=== PATIENT | male | born 1960 | race Caucasian/White ===

== ENCOUNTER → 2017-12-04 16:17 | Outpatient (REF) | payer OTHER, SELFPAY ==
[2017-12-13 19:21] LABS: Ca oxalate dihydrate 40 % (.)
[2017-12-14 10:02] LABS: Specimen Type Comment: (.)
== END ==
LOC: LAB 16:17
PROVIDERS: Visit Provider Urology
DX: N20.0 Calculus of kidney (principal)
CPT/HCPCS: 82370

== ENCOUNTER 2019-11-26 21:06 | Emergency (ER) | payer BC, SELFPAY ==
[2019-11-26 21:07] VITALS: BP 153/91; PULSE 102; RESP 16; TEMP 36.7; O2SAT 98; BMI 33.6
--- NOTE | 2019-11-26 21:19 | CT_ITS ---
PROCEDURE: CT CERVICAL SPINE WO CON CLINICAL INDICATION: numbness on right side of back Right upper and right lower extremity tingling and numbness COMPARISON: No exams were available for comparison TECHNIQUE: Axial images obtained with sagittal and coronal reformats. All CT scans at the facility use one or more dose reduction, viz: automated exposure control, ma/kV adjustment per patient size (including targeted exams where dose is matched to indication, i.e. head), or iterative reconstruction technique. Axial spiral CT scanning performed of the cervical spine beginning at the base of the skull and continuing to the upper T-spine. 3-D multiplanar reconstruction with 3-D manipulation of volumetric data set in image rendering was completed by the radiologist and/or technologist with the supervision of the radiologist on independent workstation. FINDINGS: There is normal alignment. Patient's head is tilted toward the right. No acute fracture or dislocation evident. C2-C3: Unremarkable. C3-C4: Unremarkable. C4-C5: Right-sided facet hypertrophy with right-sided foraminal narrowing with mild degenerative disc disease C5-C6: Mild right-sided facet hypertrophy with mild right-sided foraminal narrowing with mild degenerative disc disease C6-C7: There is a small posterior right paracentral osteophyte with degenerative disc disease. Lung apices are clear. There are mildly prominent cervical lymph nodes present bilaterally. IMPRESSION: 1. Multilevel cervical spondylosis with right-sided foraminal narrowing at C4-C5 and C5-C6 and a small posterior right paracentral osteophyte at C6-C7. MRI may provide further evaluation to determine the degree of neural impingement. 2. Mild cervical adenopathy Dictated by: Filipe May MD 11/27/2019 06:16 Filipe May MD in [facility] 11/27/2019 06:16
--- NOTE | 2019-11-26 21:19 | CT_ITS ---
PROCEDURE: CT THORACIC SPINE WO CON CLINICAL HISTORY: numbness on right side of back COMPARISON: No exams were available for comparison TECHNIQUE: Axial images obtained with sagittal and coronal reformats. All CT scans at the facility use one or more dose reduction, viz: automated exposure control, ma/kV adjustment per patient size (including targeted exams where dose is matched to indication, i.e. head), or iterative reconstruction technique. FINDINGS: There is multilevel anterior bridging osteophytes throughout the thoracic spine with mild multilevel degenerative disc disease. No fracture or dislocation. No canal stenosis. No lytic or blastic change. Normal alignment. No paraspinal soft tissue mass IMPRESSION: Degenerative changes with osteophytosis. No acute finding Dictated by: Filipe May MD 11/27/2019 09:18 Filipe May MD in [facility] 11/27/2019 09:18
--- NOTE | 2019-11-26 21:19 | CT_ITS ---
PROCEDURE: CT LUMBAR SPINE WO CON CLINICAL HISTORY: numbness on right side of back Right lower extremity numbness and tingling after bending over, recent fall with injury and pain COMPARISON: CT ABDPELW/O CT ABD PELVIS W/O CONTRAST from 01/31/2017 TECHNIQUE: Axial images obtained with sagittal and coronal reformats. All CT scans at the facility use one or more dose reduction, viz: automated exposure control, ma/kV adjustment per patient size (including targeted exams where dose is matched to indication, i.e. head), or iterative reconstruction technique. FINDINGS: There is multilevel lumbar spondylosis. T12-L1: Degenerate disc disease with anterior osteophytes. L1-L2: Degenerate disc disease with mild bulging disc eccentric toward the left lateral region L2-L3: Mild degenerative disc disease with mild bulging disc. L3-L4: Mild concentric bulging disc with facet and ligamentum hypertrophy with borderline narrowing of the canal with bilateral foraminal narrowing. L4-5: Bulging disc with facet and ligamentum hypertrophy with canal stenosis bilateral lateral recess narrowing and bilateral foraminal narrowing with facet hypertrophic change. L5-S1: Bulging disc with facet and ligamentum hypertrophy with bilateral lateral recess narrowing and mild bilateral foraminal narrowing. Facet hypertrophic changes on the right abuts the right S1 nerve root. No acute fracture or dislocation. No lytic or blastic change. Low-density changes are present in the right kidney inferiorly may be due to a renal cyst which could be confirmed with ultrasound measuring approximately 12 mm. Exophytic renal cyst noted on the left at 14 mm. Incidental vascular calcifications are present. IMPRESSION: Multilevel lumbar spondylosis as described above with foraminal lateral recess narrowing and canal stenosis. Please see above for detailed description at each level. Dictated by: Filipe May MD 11/27/2019 09:14 Filipe May MD in [facility] 11/27/2019 09:14
[2019-11-26 21:29] VITALS: BP 137/84; PULSE 90; RESP 18; O2SAT 94
--- NOTE | 2019-11-26 21:35 | PC.NURSE ---
pt to xray at this time per rad staff via wheelchair
[2019-11-26 22:02] VITALS: BP 136/81; PULSE 89; RESP 18; O2SAT 92
--- NOTE | 2019-11-26 22:27 | HMH.EDBACK ---
ED Disposition Clinical Impression: Lumbar radiculopathy, Cervical radicular pain, Lumbar facet joint pain, Lumbar stenosis without neurogenic claudication, Foraminal stenosis of lumbar region Disposition: Home, Self-Care Condition on Discharge: Good Instructions: DI for Back Pain With Sciatica Additional Instructions: call pcp and dr blue in am for follow up Referrals: Pop Dunham [Primary Care Provider] - Oscar Blue MD [Staff Physician] - - Critical Care Critical Care Time: No Attestation: On 11/26/19, the high probability of a clinically significant, sudden or life threatening deterioration of the following system(s) required my full and direct attention, intervention and personal management. The time I documented below is in addition to time spent performing reported procedures but includes the following listed in this critical care notation. Medical Decision Making - Medical Records Medical records reviewed: Yes: I reviewed the patient's medical records. - Khoa Inquiry Pt receiving controlled substance: No Vital Signs: 11/26/19 21:07 11/26/19 21:29 11/26/19 22:02 Temperature 98.1 F Temperature Source Oral Pulse Rate [Right] 102 H 90 89 Respiratory Rate 16 18 18 Blood Pressure [Right Arm] 153/91 H 137/84 136/81 Blood Pressure Mean [Right Arm] 111 101 99 Blood Pressure Source [Right Arm] Automatic Cuff Blood Pressure Position [Right Arm] Sitting 02 Sat by Pulse Oximetry 98 94 L 92 L Oxygen Delivery Method Room Air Room Air Room Air - Lab Data Lab results reviewed: Yes: I reviewed the patient's lab results. Orders (Tests/Meds): ORDERS Category Date Time Status CT cervical spine wo con Stat Cat Scan 11/26/19 21:[address] lumbar spine wo con Stat Cat Scan 11/26/19 21:[address] thoracic spine wo con Stat Cat Scan 11/26/19 21:19 Taken - CT Data CT Scan: C-Spine, T-Spine, L-Spine Time Received: 22:[address] Reviewed: Yes: I have viewed the radiologist's interpretation Preliminary Findings: Abnormal (see report ), No Fracture Seen Back Pain HPI - General Chief Complaint: Back Pain/Injury Stated Complaint: Numbness Time Seen by Provider: 11/26/19 22:00 Mode of Arrival: Ambulatory Source of Information: Patient, Spouse, Medical Record Limitations: No Limitations Description of Symptoms (Recalled from ER Triage Doc. by RN): Pt states he had tingling in RUE, RLE, and back staring approximately 30 minutes ago. Pt mentions hx of sciatica and this started after bending over. - History of Present Illness HPI Narrative: after bending had episode of tingling rt upper and rt lower ext with pain but no visual sx and no speech or motor loss - no trauma or fever and no rash MD Complaint: back pain Onset (ago): hour(s) Duration: intermittent Similar Symptoms Previously: No Location: lumbar spine Severity: moderate Quality: tingling Radiation: right leg Context: bending Associated symptoms: denies other symptoms - Related Data Home Medications Medication Instructions Recorded Confirmed lovastatin 10 mg tablet 10 mg PO HS 07/17/17 11/26/19 metformin 500 mg tablet 500 mg PO BID 07/17/17 11/26/19 Linagliptin [Tradjenta 5mg tablet] 5 mg PO DAILY 11/26/19 11/26/19 Allergies Allergy/AdvReac Type Severity Reaction Status Date / Time prednisone [PREDNISONE] Allergy Unknown Unverified 07/17/17 09:47 [facility] History - Hepatitis A Screen Drug use history?: No High risk sexual behaviors?: No History of sexually transmitted infection?: No Currently employed?: No Childcare worker?: No Do you have indoor plumbing?: Yes Do you have electricity?: Yes Attestation statement:: This patient has been screened for Hepatitis A risk factors. I have reviewed the patient's past medical history: Yes Medical History: Reports:: Asthma, Depression, Diabetes Mellitus Type 2, Hyperlipidemia, Hypertension, Kidney Stones Denies:: Cancer, Diabetes Mellitus Type 1, Internal Pacemak
[2019-11-26 22:39] VITALS: BP 126/79; PULSE 81; RESP 18; O2SAT 94
[2019-11-26 22:44] VITALS: BP 126/79; PULSE 87; RESP 16; TEMP 36.9; O2SAT 98
== END 2019-11-26 22:46 | disposition home or self-care (01) ==
PROVIDERS: Emergency Provider Emergency Medicine; PCP Internal Medicine
DX: M54.16 Radiculopathy, lumbar region (principal); M54.12 Radiculopathy, cervical region; M48.061 Spinal stenosis, lumbar region without neurogenic claudication; E78.5 Hyperlipidemia, unspecified; I10 Essential (primary) hypertension; F17.210 Nicotine dependence, cigarettes, uncomplicated; Z79.899 Other long term (current) drug therapy
CPT/HCPCS: 72125; 72128; 72131; 99283

== ENCOUNTER → 2021-04-15 12:33 | Outpatient (CLI) | payer BC, SELFPAY ==
[2021-04-15 14:43] LABS: Hemoglobin A1C 6.8 % (4.0-6.0)
[2021-04-15 16:50] LABS: Chloride 103 mmol/L (98-107); Potassium 4.9 mmoL/L (3.5-5.1); Sodium 137 mmol/L (136-145)
[2021-04-15 16:52] LABS: Alanine Aminotransferase 31 U/L (12-78); Aspartate Amino Transferase 41 U/L (17-59); Blood Urea Nitrogen 12 mg/dl (9-20); Estimated Glomerular Filt Rate 114 ml/min (>60); GFR (African American) 138 ML/MIN (>60)
[2021-04-15 16:53] LABS: Albumin Level 4.3 g/dl (3.5-5.0); Albumin/Globulin Ratio 1.6 (1.1-1.8); Alkaline Phosphatase 84 U/L (38-126); Anion Gap 10.9 mEq/L (5-15); Bilirubin,Total 0.4 mg/dl (0.2-1.3); Calcium 8.1 mg/dl (8.4-10.2); Carbon Dioxide 28 mmol/L (22.0-30.0); Chol/HDL Ratio 5.7 (1-3.5); Cholesterol 193 mg/dl (140-200); Creatine Kinase 91 U/L (55-170); Globulin 2.7 g/dL (1.3-3.2); Glucose 108 mg/dl (74-100); HDL Cholesterol 34 mg/dl (40-60); Triglycerides 185 mg/dl (30-150); VLDL Cholesterol 37 mg/dL (0-40)
[2021-04-15 17:04] LABS: Direct LDL Cholesterol 135.48 mg/dL (100-129)
== END ==
PROVIDERS: Visit Provider Internal Medicine
DX: E11.42 Type 2 diabetes mellitus with diabetic polyneuropathy (principal); I10 Essential (primary) hypertension; E78.5 Hyperlipidemia, unspecified; Z79.84 Long term (current) use of oral hypoglycemic drugs
CPT/HCPCS: 80053; 80061; 82550; 83036

== ENCOUNTER → 2021-10-14 12:34 | Outpatient (CLI) | payer BC, SELFPAY ==
[2021-10-14 14:04] LABS: Basophils # 0.1 K/mm3 (0-0.2); Basophils % 0.8 % (0.1-2.0); Eosinophils # 0.1 K/mm3 (0.0-0.4); Eosinophils % 1.3 % (0.1-12.0); Hematocrit 49.7 % (42.0-52.0); Hemoglobin 15.6 g/dL (14.1-18.0); Lymphocytes # 2.6 K/mm3 (0.7-4.5); Lymphocytes % 32.2 % (10-50); Mean Corpuscular HGB Conc 31.4 g/dL (31.8-35.4); Mean Corpuscular Hemoglobin 28.4 pg (27.0-31.2); Mean Corpuscular Volume 90.6 fl (80-94); Mean Platelet Volume 11.7 fl (7.4-10.4); Monocytes # 0.4 K/mm3 (0.1-1.0); Monocytes % 4.4 % (1.7-9.3); Neutrophils % 61.3 % (37.0-80.0); Platelet Count 247 K/mm3 (142-424); Red Blood Count 5.48 M/mm3 (4.60-6.20); Red Cell Distribution Width 14.1 % (11.5-17.5); White Blood Count 8.2 K/mm3 (4.8-10.8)
[2021-10-14 14:13] LABS: Creatinine,Urine Random 107 mg/dL (Not Estab.)
[2021-10-14 14:18] LABS: Microalbumin/Creatinine Ratio 10.6
[2021-10-14 14:22] LABS: Hemoglobin A1C 7.1 % (4.0-6.0)
[2021-10-14 14:54] LABS: Alanine Aminotransferase 48 U/L (12-78); Albumin Level 4.2 g/dl (3.5-5.0); Albumin/Globulin Ratio 1.4 (1.1-1.8); Alkaline Phosphatase 84 U/L (38-126); Anion Gap 12.9 mEq/L (5-15); Aspartate Amino Transferase 52 U/L (17-59); Bilirubin,Total 0.1 mg/dl (0.2-1.3); Blood Urea Nitrogen 17 mg/dl (9-20); Calcium 8.9 mg/dl (8.4-10.2); Carbon Dioxide 23 mmol/L (22.0-30.0); Chloride 108 mmol/L (98-107); Chol/HDL Ratio 6.8 (1-3.5); Cholesterol 210 mg/dl (140-200); Estimated Glomerular Filt Rate 136 ml/min (>60); GFR (African American) 165 ML/MIN (>60); Globulin 3.1 g/dL (1.3-3.2); Glucose 120 mg/dl (74-100); HDL Cholesterol 31 mg/dl (40-60); Potassium 4.9 mmoL/L (3.5-5.1); Sodium 139 mmol/L (136-145); Total Protein,Serum 7.3 g/dl (6.3-8.2); Triglycerides 221 mg/dl (30-150); VLDL Cholesterol 44 mg/dL (0-40)
[2021-10-14 15:24] LABS: Prostate Specific Ag Screen 1.8 ng/ml (0.0-4.0)
[2021-10-16 10:10] LABS: Direct LDL Cholesterol 127 mg/dL (100-129)
== END ==
PROVIDERS: PCP Internal Medicine; Visit Provider Internal Medicine
DX: E11.42 Type 2 diabetes mellitus with diabetic polyneuropathy (principal); I10 Essential (primary) hypertension; E78.5 Hyperlipidemia, unspecified; N40.1 Benign prostatic hyperplasia with lower urinary tract symptoms; Z12.5 Encounter for screening for malignant neoplasm of prostate
CPT/HCPCS: 80053; 80061; 82043; 82570; 83036; 85025; G0103

== ENCOUNTER → 2021-12-07 10:29 | Outpatient (CLI) | payer BC, SELFPAY ==
--- NOTE | 2021-12-07 10:39 | CT_ITS ---
FINAL REPORT CLINICAL HISTORY: ? TIA X1 WEEK, L BODY NUMBNESS FINDINGS: Axial images of the head were obtained without contrast. Coronal reformatted images were also obtained.This study was performed with techniques to keep radiation doses as low as reasonably achievable (ALARA). Individualized dose reduction techniques using automated exposure control or adjustment of mA and/or kV according to the patient's size were employed. There is no evidence of intracranial hemorrhage or mass. The ventricular size is within normal limits. There is no evidence of shift of the midline structures. No abnormal extra axial fluid collection is identified. No skull abnormality is seen on the bone window images. IMPRESSION: No acute intracranial abnormality. Reviewed, Interpreted and Dictated by Ramon Murray III, MD Transcribed by Hortencia Rodriguez Authenticated and [facility]
--- NOTE | 2021-12-07 12:02 | ECG_ITS ---
APPROVED REPORT Exam: Resting ECG HR:70 bpm ECG Measurements Heart Rate 70 AXES HI 168 P -2 QRSd 109 QRS 0 QT 399 T 53 QTc 420 Conclusion SINUS RHYTHM WITH SINUS ARRHYTHMIA NORMAL ECG Electronically signed by : Pop Dunham MD 12/07/2021 15:52:12
== END ==
PROVIDERS: PCP Internal Medicine; Visit Provider Internal Medicine
DX: G45.8 Other transient cerebral ischemic attacks and related syndromes (principal); R20.0 Anesthesia of skin
CPT/HCPCS: 70450; 93005; 93225; 93226

== ENCOUNTER → 2021-12-14 12:44 | Outpatient (CLI) | payer BC, SELFPAY ==
--- NOTE | 2021-12-14 12:50 | CA_ITS ---
APPROVED REPORT EXAM: Comprehensive 2D, Doppler, and color-flow Echocardiogram Town Manager: Jessi Hernandez RT(R) Ht: 5 ft 10 in Wt: 226lbs BSA: 2.20 BP: 145/84 mmHg Indications: TIA, HTN, hyperlipidemia, smoker, DM, family history of HD 2D Dimensions LVOT 2.12 cm (M/F) 1.5-2.5 LVEF (Levy's) 43.80 % M: 52 - 72 LV Volume 128.40 mL M: 62 - 150 LV Volume Index 58.36 mL/m2 M: 34 - 74 LA Volume 40.60 mL LA Volume Index 18.45 mL/m2 (M/F) 16-34 M-Mode Dimensions RVDd 3.93 cm (0.9-2.6) LA Diam 3.63 cm (1.9-4.0) LVDd 4.91 cm (3.5-5.7) Ao Diam 3.20 cm (2.0-3.7) LVDs 3.83 cm (3.5-5.7) IVSd 1.03 cm (0.6-1.1) PWd 1.21 cm (0.6-1.1) EF (Teich) 44.40% FS 22.00% EDV (Teich) 113.40 mL ESV (Teich) 63.10 mL LV Diastology E Decel Time 183.00 (160-240 msec) E/A Ratio 0.8 MED E' 5.70 (< 7 cm/sec) E'/MED E' Ratio 10.53 (>14) LAT E' 9.10 (<10 cm/sec) E/LAT E' Ratio 6.59 (>14) Mitral Valve MV E Max Alvino. 60.00 (40-130 cm/s) MV A Velocity 76.00 (40-130 cm/s) E/A Ratio 0.79 MV Decel. Time 183.00 (160-240 ms) MV PHT 54.00 ms Left Ventricle Left atrium is mildly enlarged, left ventricle is normal size mild concentric left ventricular hypertrophy, estimated ejection fraction 55% with no regional wall motion abnormality, grade 1 diastolic dysfunction seen without tissue Doppler evidence of raise left atrial pressure. Right Ventricle Right atrium and right ventricle are mildly enlarged with normal contractility. Aortic Valve Aortic valve is thickened and calcified without aortic stenosis or aortic insufficiency. Mitral Valve Mitral valve is grossly normal, there is trace mitral regurgitation. Tricuspid Valve Tricuspid valve is grossly normal, there is trace tricuspid regurgitation. Pulmonic Valve Pulmonic valve is poorly visualized. Great Vessels Aortic root is normal size. Inferior vena cava is poorly visualized. Pericardium No significant pericardial effusion noted. Conclusion 1. Mild biatrial enlargement, normal left ventricular size, mild concentric left ventricular hypertrophy, estimated ejection fraction 55% with no regional wall motion abnormality, grade 1 diastolic dysfunction seen without tissue Doppler evidence of raise left atrial pressure. 2. Mildly enlarged right ventricle with normal contractility. 3. Thickened and calcified aortic valve without aortic stenosis or aortic insufficiency. 4. Trace mitral and tricuspid regurgitation. 5. No significant pericardial effusion. 6. Inferior vena cava is poorly visualized. Electronically signed by : Devon Shah MD 12/15/2021 06:03:14
--- NOTE | 2021-12-14 12:51 | CA_ITS ---
FINAL REPORT TECHNIQUE: Color Doppler, duplex Doppler and yoder scale sonography of the bilateral neck arterial vasculature was performed. Velocities were measured in the carotid arteries. Stenosis evaluation based on the validated velocity criteria. CLINICAL HISTORY: .TIA, Left sided numbness FINDINGS: The peak systolic velocity of the right common carotid artery is 67 cm/s. The peak systolic velocity of the right internal carotid artery is 90 cm/s and end diastolic velocity 30 cm/s. The ICA/CCA ratio is 1.3. A mild amount of plaque is present. The right external carotid artery is patent. The right vertebral artery is patent with antegrade flow. The peak systolic velocity of the left common carotid artery is 95 cm/s. The peak systolic velocity of the left internal carotid artery is 109 cm/s and end diastolic velocity 37 cm/s. The ICA/CCA ratio is 1.15. A mild amount of plaque is present. The left external carotid artery is patent.The left vertebral artery is patent with antegrade flow. IMPRESSION: Less than 50% bilateral carotid stenosis. Bilateral patent vertebral arteries with antegrade flow. If indicated, CTA or MRA could further evaluate. Reviewed, Interpreted and Dictated by Ramon Murray III, MD Transcribed by Carmen Hankins Authenticated and [facility]
== END ==
PROVIDERS: PCP Internal Medicine; Visit Provider Internal Medicine
DX: G45.8 Other transient cerebral ischemic attacks and related syndromes (principal); R20.0 Anesthesia of skin
CPT/HCPCS: 93306; 93880

== ENCOUNTER → 2022-05-05 12:43 | Outpatient (CLI) | payer BC, SELFPAY ==
[2022-05-05 13:33] LABS: Hemoglobin A1C 7.5 % (4.0-6.0)
[2022-05-05 14:50] LABS: Alanine Aminotransferase 46 U/L (12-78); Albumin Level 4.3 g/dl (3.5-5.0); Albumin/Globulin Ratio 1.6 (1.1-1.8); Alkaline Phosphatase 79 U/L (38-126); Anion Gap 13.5 mEq/L (5-15); Aspartate Amino Transferase 49 U/L (17-59); Bilirubin,Total 0.5 mg/dl (0.2-1.3); Blood Urea Nitrogen 15 mg/dl (9-20); Calcium 8.6 mg/dl (8.4-10.2); Carbon Dioxide 26 mmol/L (22.0-30.0); Chloride 103 mmol/L (98-107); Chol/HDL Ratio 4.2 (1-3.5); Cholesterol 137 mg/dl (140-200); Estimated Glomerular Filt Rate 114 ml/min (>60); GFR (African American) 138 ML/MIN (>60); Globulin 2.7 g/dL (1.3-3.2); Glucose 111 mg/dl (74-100); HDL Cholesterol 33 mg/dl (40-60); Potassium 4.5 mmoL/L (3.5-5.1); Sodium 138 mmol/L (136-145); Triglycerides 192 mg/dl (30-150); VLDL Cholesterol 38 mg/dL (0-40)
[2022-05-05 15:00] LABS: Direct LDL Cholesterol 76.03 mg/dL (100-129)
== END ==
PROVIDERS: PCP Internal Medicine; Visit Provider Internal Medicine
DX: E11.42 Type 2 diabetes mellitus with diabetic polyneuropathy (principal); E11.59 Type 2 diabetes mellitus with other circulatory complications; I10 Essential (primary) hypertension; E78.5 Hyperlipidemia, unspecified; G45.9 Transient cerebral ischemic attack, unspecified; F17.209 Nicotine dependence, unspecified, with unspecified nicotine-induced disorders; Z79.84 Long term (current) use of oral hypoglycemic drugs
CPT/HCPCS: 80053; 80061; 83036

== ENCOUNTER → 2022-07-20 12:58 | Outpatient (CLI) | payer BC, SELFPAY ==
--- NOTE | 2022-07-20 13:02 | XR_ITS ---
FINAL REPORT CLINICAL HISTORY: trigger finger FINDINGS: Right hand Three views were obtained. There is no acute fracture or dislocation. 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 There is also a chronic fracture of the distal radius. Mild degenerative changes are present. No soft tissue abnormality is identified. IMPRESSION: Degenerative and chronic appearing findings. Reviewed, Interpreted and Dictated by Ramon Murray III, MD Transcribed by Hortencia Rodriguez Authenticated and [facility]
--- NOTE | 2022-07-20 13:02 | XR_ITS ---
FINAL REPORT CLINICAL HISTORY: trigger finger FINDINGS: Left hand Three views were obtained. There is no acute fracture or dislocation. There are mild degenerative changes. No soft tissue abnormality is identified. IMPRESSION: Mild degenerative changes. Reviewed, Interpreted and Dictated by Ramon Murray III, MD Transcribed by Hortencia Rodriguez Authenticated and [facility]
== END ==
PROVIDERS: PCP Internal Medicine; Visit Provider Orthopaedic Surgery
DX: M65.30 Trigger finger, unspecified finger (principal)
CPT/HCPCS: 73130

== ENCOUNTER → 2022-11-07 14:10 | Outpatient (CLI) | payer BC, SELFPAY ==
[2022-11-07 15:40] LABS: Basophils % 0.2 % (0.1-2.0); Eosinophils # 0.3 K/mm3 (0.0-0.4); Eosinophils % 2.6 % (0.1-12.0); Hematocrit 49.6 % (42.0-52.0); Hemoglobin 15.9 g/dL (14.1-18.0); Lymphocytes # 2.6 K/mm3 (0.7-4.5); Lymphocytes % 25.5 % (10-50); Mean Corpuscular HGB Conc 32.1 g/dL (31.8-35.4); Mean Corpuscular Hemoglobin 28.8 pg (27.0-31.2); Mean Corpuscular Volume 89.8 fl (80-94); Mean Platelet Volume 11.1 fl (7.4-10.4); Monocytes # 0.4 K/mm3 (0.1-1.0); Monocytes % 4.2 % (1.7-9.3); Neutrophils % 67.6 % (37.0-80.0); Platelet Count 234 K/mm3 (142-424); Red Blood Count 5.53 M/mm3 (4.60-6.20); Red Cell Distribution Width 13.7 % (11.5-17.5); White Blood Count 10.4 K/mm3 (4.8-10.8)
[2022-11-07 16:39] LABS: Alanine Aminotransferase 42 U/L (12-78); Albumin Level 4.4 g/dl (3.5-5.0); Albumin/Globulin Ratio 1.4 (1.1-1.8); Alkaline Phosphatase 95 U/L (38-126); Anion Gap 15.7 mEq/L (5-15); Aspartate Amino Transferase 44 U/L (17-59); Bilirubin,Total 0.3 mg/dl (0.2-1.3); Blood Urea Nitrogen 19 mg/dl (9-20); Carbon Dioxide 24 mmol/L (22.0-30.0); Chloride 105 mmol/L (98-107); Chol/HDL Ratio 4.8 (1-3.5); Cholesterol 154 mg/dl (140-200); Estimated Glomerular Filt Rate 114 ml/min (>60); GFR (African American) 137 ML/MIN (>60); Globulin 3.2 g/dL (1.3-3.2); Glucose 118 mg/dl (74-100); HDL Cholesterol 32 mg/dl (40-60); Potassium 4.7 mmoL/L (3.5-5.1); Sodium 140 mmol/L (136-145); Total Protein,Serum 7.6 g/dl (6.3-8.2); Triglycerides 211 mg/dl (30-150); VLDL Cholesterol 42 mg/dL (0-40)
[2022-11-07 16:50] LABS: Direct LDL Cholesterol 78.86 mg/dL (100-129)
[2022-11-07 16:55] LABS: Hemoglobin A1C 7.6 % (4.0-6.0)
[2022-11-07 17:10] LABS: Prostate Specific Ag Screen 1.6 ng/ml (0.0-4.0)
== END ==
LOC: LAB.DROPOF 14:10
PROVIDERS: PCP Internal Medicine; Visit Provider Internal Medicine
DX: E11.42 Type 2 diabetes mellitus with diabetic polyneuropathy (principal); E11.59 Type 2 diabetes mellitus with other circulatory complications; I10 Essential (primary) hypertension; E78.5 Hyperlipidemia, unspecified; G45.8 Other transient cerebral ischemic attacks and related syndromes; R39.12 Poor urinary stream; Z12.5 Encounter for screening for malignant neoplasm of prostate
CPT/HCPCS: 80053; 80061; 83036; 85025; G0103

== ENCOUNTER 2023-06-08 12:52 | Outpatient (CLI) | payer MEDICARE, OTHER, SELFPAY ==
[2023-06-08 13:52] LABS: Hemoglobin A1C 7.9 % (4.0-6.0)
[2023-06-08 14:02] LABS: Alanine Aminotransferase 58 U/L (12-78); Albumin Level 4.6 g/dl (3.5-5.0); Albumin/Globulin Ratio 1.6 (1.1-1.8); Alkaline Phosphatase 73 U/L (38-126); Aspartate Amino Transferase 55 U/L (17-59); Bilirubin,Total 0.5 mg/dl (0.2-1.3); Blood Urea Nitrogen 18 mg/dl (9-20); Calcium 9.5 mg/dl (8.4-10.2); Carbon Dioxide 27 mmol/L (22.0-30.0); Chloride 104 mmol/L (98-107); Chol/HDL Ratio 4.1 (1-3.5); Cholesterol 124 mg/dl (140-200); Estimated Glomerular Filt Rate 136 ml/min (>60); GFR (African American) 164 ML/MIN (>60); Globulin 2.9 g/dL (1.3-3.2); Glucose 117 mg/dl (74-100); HDL Cholesterol 30 mg/dl (40-60); Sodium 140 mmol/L (136-145); Total Protein,Serum 7.5 g/dl (6.3-8.2); Triglycerides 191 mg/dl (30-150); VLDL Cholesterol 38 mg/dL (0-40)
[2023-06-08 14:24] LABS: Direct LDL Cholesterol 67.83 mg/dL (100-129)
== END 2023-06-08 23:59 | disposition home or self-care (01) ==
LOC: LAB.DROPOF 12:53
PROVIDERS: PCP Internal Medicine; Visit Provider Internal Medicine
DX: E11.42 Type 2 diabetes mellitus with diabetic polyneuropathy (principal); I10 Essential (primary) hypertension; E78.5 Hyperlipidemia, unspecified; Z86.73 Personal history of transient ischemic attack (TIA), and cerebral infarction without residual deficits; F17.209 Nicotine dependence, unspecified, with unspecified nicotine-induced disorders; J45.909 Unspecified asthma, uncomplicated
CPT/HCPCS: 80053; 80061; 83036

== ENCOUNTER 2023-10-30 15:30 | Outpatient (CLI) | payer MEDICARE, OTHER, SELFPAY ==
--- NOTE | 2023-10-30 15:37 | XR_ITS ---
FINAL REPORT CLINICAL HISTORY: Right back pain with sciatica FINDINGS: LUMBAR SPINE 3 views were obtained. There is no acute fracture. Vertebrae are normal height. There is no malalignment. There is anterior osteophyte formation at L1-2 and L3-4. There is no soft tissue abnormality. IMPRESSION: No acute bony abnormality. Reviewed, Interpreted and Dictated by Owen Anna MD Transcribed by Marcela Escobedo Authenticated and [facility]
== END 2023-10-30 23:59 | disposition home or self-care (01) ==
LOC: RAD 15:33
PROVIDERS: PCP Internal Medicine; Visit Provider Internal Medicine
DX: M54.41 Lumbago with sciatica, right side (principal)
CPT/HCPCS: 72100

== ENCOUNTER 2023-12-10 14:23 | Outpatient (CLI) | payer MEDICARE, OTHER, SELFPAY ==
[2023-12-10 13:29] LABS: Basophils % 0.5 % (0.1-2.0); Eosinophils # 0.4 K/mm3 (0.0-0.4); Hematocrit 46.7 % (42.0-52.0); Hemoglobin 15.3 g/dL (14.1-18.0); Lymphocytes # 2.3 K/mm3 (0.7-4.5); Lymphocytes % 26.8 % (10-50); Mean Corpuscular HGB Conc 32.7 g/dL (31.8-35.4); Mean Corpuscular Hemoglobin 28.8 pg (27.0-31.2); Mean Corpuscular Volume 88.1 fl (80-94); Mean Platelet Volume 10.6 fl (7.4-10.4); Monocytes # 0.4 K/mm3 (0.1-1.0); Monocytes % 4.4 % (1.7-9.3); Neutrophils # 5.6 K/mm3 (1.8-7.8); Neutrophils % 64.3 % (37.0-80.0); Platelet Count 193 K/mm3 (142-424); Red Blood Count 5.31 M/mm3 (4.60-6.20); White Blood Count 8.7 K/mm3 (4.8-10.8)
[2023-12-10 14:19] LABS: Creatinine,Urine Random 76 mg/dL (Not Estab.)
[2023-12-10 14:22] LABS: Microalbumin/Creatinine Ratio 35.3
[2023-12-10 15:27] LABS: Chol/HDL Ratio 3.9 (1-3.5); Cholesterol 134 mg/dl (140-200); HDL Cholesterol 34 mg/dl (40-60); Triglycerides 212 mg/dl (30-150); VLDL Cholesterol 42 mg/dL (0-40)
[2023-12-10 15:38] LABS: Direct LDL Cholesterol 63.36 mg/dL (100-129)
[2023-12-10 15:59] LABS: Prostate Specific Ag Screen 1.8 ng/ml (0.0-4.0)
[2023-12-10 16:12] LABS: Hemoglobin A1C 7.7 % (4.0-6.0)
[2023-12-11 10:58] LABS: Alanine Aminotransferase 52 U/L (12-78); Albumin Level 4.3 g/dl (3.5-5.0); Albumin/Globulin Ratio 1.6 (1.1-1.8); Alkaline Phosphatase 68 U/L (38-126); Anion Gap 10.5 mEq/L (5-15); Aspartate Amino Transferase 53 U/L (17-59); Bilirubin,Total 0.5 mg/dl (0.2-1.3); Blood Urea Nitrogen 17 mg/dl (9-20); Calcium 8.9 mg/dl (8.4-10.2); Carbon Dioxide 27 mmol/L (22.0-30.0); Chloride 105 mmol/L (98-107); Estimated Glomerular Filt Rate 135 ml/min (>60); GFR (African American) 164 ML/MIN (>60); Globulin 2.7 g/dL (1.3-3.2); Glucose 128 mg/dl (74-100); Potassium 4.5 mmoL/L (3.5-5.1); Sodium 138 mmol/L (136-145)
== END 2023-12-10 23:59 | disposition home or self-care (01) ==
LOC: LAB.DROPOF 14:24
PROVIDERS: PCP Internal Medicine; Visit Provider Internal Medicine
DX: E11.59 Type 2 diabetes mellitus with other circulatory complications (principal); E78.5 Hyperlipidemia, unspecified; Z12.5 Encounter for screening for malignant neoplasm of prostate; I10 Essential (primary) hypertension; E11.42 Type 2 diabetes mellitus with diabetic polyneuropathy
CPT/HCPCS: 80053; 80061; 82043; 82570; 83036; 85025; G0103

== ENCOUNTER 2024-03-08 17:35 | Emergency (ER) | payer MEDICARE, OTHER, SELFPAY ==
[2024-03-08 17:37] VITALS: BP 154/81; PULSE 83; RESP 18; TEMP 36.9; O2SAT 96; BMI 32.3
--- NOTE | 2024-03-08 17:46 | XR_ITS ---
PROCEDURE INFORMATION: Exam: XR Right Shoulder Exam date and time: 03/08/2024 5:44 PM Age: 63 years old Clinical indication: Pain; Shoulder; Right TECHNIQUE: Imaging protocol: Radiologic exam of the right shoulder. Views: 2 or more views. COMPARISON: CT CERVICAL SPINE WO CON 11/26/2019 9:36 PM FINDINGS: Bones/joints: Normal. Soft tissues: Normal. IMPRESSION: No acute findings.
--- NOTE | 2024-03-08 17:58 | ED_ITS ---
Discharge Plan Disposition Patient Disposition: Home, Self-Care Condition: Good Prescriptions Prescriptions: New methocarbamol 500 mg tablet 500 mg PO HS Qty: 7 0RF No Action Jardiance 25 mg tablet 25 mg PO DAILY Patient Comments: TAKE 1 TABLET BY MOUTH IN THE MORNING FOR BLOOD SUGAR metformin 500 mg tablet See Rx Instructions .ROUTE .COMPLEX Qty: 360 1RF Dose Instruction: TAKE 2 TABLETS BY MOUTH TWICE DAILY WITH MEALS Rx Instructions: TAKE 2 TABLETS BY MOUTH TWICE DAILY WITH MEALS fexofenadine-pseudoephedrine [Kay-D 24 Hour] 180-240 mg tablet extended release 24 hr 1 tab PO DAILY PRN (Reason: allergy symptoms) Qty: 60 0RF atorvastatin 20 mg tablet See Rx Instructions .ROUTE .COMPLEX Qty: 90 1RF Dose Instruction: Take 1 tablet by mouth in the evening Rx Instructions: Take 1 tablet by mouth in the evening clopidogrel 75 mg tablet See Rx Instructions .ROUTE .COMPLEX Qty: 90 1RF Dose Instruction: Take 1 tablet by mouth once daily Rx Instructions: Take 1 tablet by mouth once daily losartan 25 mg tablet 25 mg PO DAILY Qty: 90 1RF oseltamivir [Tamiflu] 75 mg capsule 75 mg PO BID 5 Days Qty: 10 0RF Referrals Follow up/Referrals: Pop Dunham MD [Primary Care Provider] - See instructions Activity Restrictions/Add. Instructions Additional Instructions/Restrictions: Tylenol as needed for pain Ice 20 minutes every hour for comfort Monitor for signs and symptoms of infection Muscle relaxers at bedtime Follow-up with PCP or Ortho as needed If symptoms worsen or do not improve return Clinical Impressions Clinical Impression: Muscle strain Instructions Patient Instructions: DI for Muscle Strain Print Language Print Language: Monegasque Discharge ED Provider: Hunter Sandoval General Adult HPI <Komal Chavarria ([facility]), [employer] - Last Filed: 03/08/24 18:27> General Chief complaint: Extremity Problem,Nontraumatic Stated complaint: right shoulder pain Time Seen by Provider: 03/08/24 17:44 Mode of Arrival: Ambulatory Source of Information: Patient Limitations: No Limitations Description of Symptoms (Recalled from ER Triage Doc. by RN): r shoulder pain x over a month History of Present Illness HPI narrative: 63-year-old male presents for right shoulder pain for over a month but worse this morning when he got up. Patient states he did have bursitis in his left shoulder and it seems like it is moved to his right shoulder. Related Data Home Medications ?Medication ?Instructions ?Recorded ?Confirmed empagliflozin 25 mg tablet 25 mg PO DAILY 09/10/23 12/10/23 (Jardiance) Previous Rx's ?Medication ?Instructions ?Recorded metformin 500 mg tablet See Rx Instructions .Route 08/31/23 .COMPLEX #360 tabs fexofenadine-pseudoephedrine ER 1 tab PO DAILY PRN allergy 11/06/23 180 mg-240 mg tablet,ext.release symptoms #60 tabs 24 hr (Kay-D 24 Hour) atorvastatin 20 mg tablet See Rx Instructions .Route 11/14/23 .COMPLEX #90 tabs clopidogrel 75 mg tablet See Rx Instructions .Route 12/03/23 .COMPLEX #90 tabs losartan 25 mg tablet 25 mg PO DAILY #90 tabs 01/29/24 oseltamivir 75 mg capsule (Tamiflu) 75 mg PO BID 5 days #10 caps 02/28/24 methocarbamol 500 mg tablet 500 mg PO HS #7 tabs 03/08/24 Allergies Allergy/AdvReac Type Severity Reaction Status Date / Time prednisone (PREDNISONE) Allergy Unknown Verified 12/10/23 09:40 <Hunter Sandoval MD - Last Filed: 03/08/24 23:33> History of Present Illness HPI narrative: 63-year-old male presents for right shoulder pain for over a month but worse this morning when he got up. Patient states he did have bursitis in his left shoulder and it seems like it is moved to his right shoulder. Patient has had no fevers, chills, skin changes to his right shoulder. He is still able to move it but has some pain with movement. He has no numbness, tingling, weakness [facility] <Komal Chavarria ([facility]), [employer] - Last Filed: 03/08/24 18:27> [facility] Disclaimer: The information contained in this section may have been updated after the patient was seen, as this information can be updated by other users. Social History Smoking Status: Current every day smoker tobacco type: cigarettes packs per day: 2 alcohol intake: never substance use type: denies use current occupational status: employed Travel in the last 8 weeks: None housing: house Have you lived/traveled outside US in past 30 days?: No Contact w/someone who lives/traveled outside US past 30 days?: No Exposure to someone with infectious disease in past 14 days?: No Do you have a fever (greater than 100.4 F or 38 C)?: No Have you tested positive for COVID-19: No Exposed to someone with COVID-19 in past 14 days?: No Do you have a sore throat?: No Do you have a cough?: No Do you have any weakness?: No Do you have any diarrhea?: No Are you experiencing any unusual bleeding?: No Do you have any muscle aches/pain?: No Do you have any abdominal pain?: No Are you experiencing loss of taste or smell?: No Other Medical History Have you received the Flu Vaccine for this season: Yes Have you received the Pneumonia Vaccine: No <[facility] [employer] [employer] - Last Filed: 03/08/24 18:27> ROS Obtained: Yes Systems reviewed as appropriate & no additional complaints except as documented Physical Exam <[facility] [employer] - Last Filed: 03/08/24 18:27> General General appearance: alert and in no apparent distress ENT ENT exam: Present normal exam Respiratory Respiratory exam: Present normal lung sounds bilaterally Cardiovascular Cardiovascular exam: Present regular rate and normal rhythm Abdominal Exam Abdominal exam: Present soft Extremities Exam Extremities exam: Present normal inspection, full ROM and tenderness Expanded Upper Extremity Exam Right: Shoulder exam: Present normal inspection and tenderness Neurological Exam Neurological exam: Present alert and oriented X3 Skin Skin exam: Present warm and intact Lymphatic Lymphatic Findings: no adenopathy <Hunter Sandoval MD - Last Filed: 03/08/24 23:33> Expanded Upper Extremity Exam Right: Shoulder exam: Present full ROM; Absent swelling, abrasion, laceration, deformity, crepitus, dislocation or tenderness over AC joint Arm exam: Present normal inspection Elbow exam: Present normal inspection Forearm/Wrist exam: Present normal inspection Hand exam: Present normal inspection Vascular exam: Normal radial pulse Medical Decision Making <[facility] [employer] [employer] - Last Filed: 03/08/24 18:27> Medical Records Medical records reviewed: Yes I reviewed the patient's medical records. Screening: Per USPSTF and CDC recommendations, given the prevalence of disease in our region, it is our hospital?s policy to screen for HIV and viral Hepatitis for all patients aged 18 and over and those with ongoing risk factors. Khoa Inquiry Pt receiving controlled substance: No Vital Signs: 03/08/24 17:37 03/08/24 18:35 Temperature 98.4 F 98.4 F Temperature Source Oral Pulse Rate 79 Pulse Rate [Left] 83 Respiratory Rate 18 18 Blood Pressure 148/86 H Blood Pressure [Left Arm] 154/81 H Blood Pressure Mean [Left Arm] 105 02 Sat by Pulse Oximetry 96 Orders (Tests/Meds): ORDERS Category Date Time Status XR shoulder RT min 2V Stat Exams 03/08/24 17:46 Completed Radiology Data #1: Image(s): Other (Shoulder) Image Reviewed: Yes I reviewed the patient's radiology image Preliminary Findings: Normal/NAD Medical Decision Narrative: In summary patient is a 63-year-old male who presents to the emergency department for evaluation of right shoulder pain for over a month woke up this morning and it was worse. Patient is hemodynamically stable upon arrival, afebrile. Tenderness in the shoulder with palpitations. Differential diagnosis includes bursitis, rotator cuff injury, muscle spasm. Initial workup will be conducted with shoulder x-ray. Initial inventions include shoulder x-ray. Initial workup reviewed by me shoulder x-ray negative. Upon repeat evaluation patient was sitting up in the chair. Given this patient appropriate for discharge at this time will discharge home and encouraged Tylenol as needed will give Robaxin for muscle spasm. Follow-up with Ortho as needed <Hunter Sandoval MD - Last Filed: 03/08/24 23:33> Vital Signs: 03/08/24 17:37 03/08/24 18:35 Temperature 98.4 F 98.4 F Temperature Source Oral Pulse Rate 79 Pulse Rate [Left] 83 Respiratory Rate 18 18 Blood Pressure 148/86 H Blood Pressure [Left Arm] 154/81 H Blood Pressure Mean [Left Arm] 105 02 Sat by Pulse Oximetry 96 Orders (Tests/Meds): ORDERS Category Date Time Status XR shoulder RT min 2V Stat Exams 03/08/24 17:46 Completed Medical Decision Narrative: In summary patient is a 63-year-old male who presents to the emergency department for evaluation of right shoulder pain for over a month woke up this morning and it was worse. Patient is hemodynamically stable upon arrival, afebrile. Mild tenderness in the shoulder with palpitation. He has no overlying skin changes, full range of motion, no obvious deformity. differential diagnosis includes bursitis, rotator cuff injury, muscle spasm. Initial workup will be conducted with shoulder x-ray. Initial inventions include shoulder x- ray. Initial workup reviewed by me shoulder x-ray negative. Upon repeat evaluation patient was sitting up in the chair. Given this patient appropriate for discharge at this time will discharge home and encouraged Tylenol as needed will give Robaxin for muscle spasm. Follow-up with Ortho as needed Critical Care <Komal Chavarria ([facility]), [employer] - Last Filed: 03/08/24 18:27> Critical Care Time Critical Care Time: No
[2024-03-08 18:35] VITALS: BP 148/86; PULSE 79; RESP 18; TEMP 36.9
== END 2024-03-08 18:40 | disposition home or self-care (01) ==
PROVIDERS: Emergency Provider Student in an Organized Health Care Education/Training Program; PCP Internal Medicine
DX: T14.8XXA Other injury of unspecified body region, initial encounter (principal); M25.511 Pain in right shoulder
CPT/HCPCS: 73030; 99283

== ENCOUNTER 2024-05-08 07:55 | Outpatient (CLI) | payer MEDICARE, OTHER, SELFPAY ==
--- NOTE | 2024-05-08 07:57 | MR_ITS ---
FINAL REPORT TECHNIQUE: Multiplanar MR without gadolinium enhancement CLINICAL HISTORY: Cervicalgia, radicular pain right arm best images possible , pt unable to lay down flat COMPARISON: None FINDINGS: There is motion on many sequences which limits overall image quality. Limited images of the posterior fossa are unremarkable. Alignment is normal. Cervical spinal cord is grossly unremarkable. There is a multiseptated cystic mass in the subcutaneous tissues at the C2-3 level measuring 24 mm, located in the midline. C2-3: Unremarkable C3-4: Unremarkable C4-5: There is moderate right facet arthropathy with mild right neural foraminal narrowing. No canal stenosis is present. C5-6: There is moderate right facet arthropathy with mild right neural foraminal narrowing. No canal stenosis is identified. C6-7: Unremarkable C7-T1: Unremarkable IMPRESSION: Mild degenerative change at the C4-5 and C5-6 levels with right-sided facet arthropathy and mild right neural foraminal narrowing. Reviewed, Interpreted and Dictated by Cely Roper MD Transcribed by Concepción Martinez Authenticated and [facility]
== END 2024-05-08 23:59 | disposition home or self-care (01) ==
LOC: RAD 07:57
PROVIDERS: PCP Internal Medicine; Visit Provider Internal Medicine
DX: M54.2 Cervicalgia (principal); M54.12 Radiculopathy, cervical region
CPT/HCPCS: 72141

== ENCOUNTER 2024-05-26 13:59 | Outpatient (CLI) | payer MEDICARE, OTHER, SELFPAY ==
--- NOTE | 2024-05-26 14:00 | CT_ITS ---
FINAL REPORT TECHNIQUE: Thin section axial CT images with coronal and sagittal reformats were performed after the administration of IV contrast. This study was performed with techniques to keep radiation doses as low as reasonably achievable (ALARA). Individualized dose reduction techniques using automated exposure control or adjustment of mA and/or kV according to the patient's size were employed. CLINICAL HISTORY: Multiseptated cystic lesion - soft tissues of neck abnormal MRI/ neck & shoulder pain COMPARISON: MRI of the cervical spine 05/08/2024 FINDINGS: The nasopharynx, oropharynx, epiglottis, and larynx are normal in appearance. The thyroid is homogeneous. The salivary glands are unremarkable. There is a lobular cystic lesion in the subcutaneous fat of the posterior superior neck at the level of the C1 vertebral body. This cystic mass measures 34 mm axial, and 22 mm craniocaudal. There is no peripheral or central contrast enhancement after contrast administration. No adjacent inflammatory change or adenopathy is identified. No change in size or appearance is noted since the MRI of 05/08/2024. No acute osseous abnormalities are noted. IMPRESSION: Multiloculated lobular cystic lesion in the subcutaneous fat as described, 34 x 22 mm in size, nonenhancing and without adjacent inflammatory change or adenopathy. This is unlikely to be infectious in etiology without any adjacent inflammatory change. Reviewed, Interpreted and Dictated by Ebony Benton MD Transcribed by Concepción Martinez Authenticated and [facility]
[2024-05-26 14:41] LABS: Blood Urea Nitrogen 11 mg/dl (9-20); Estimated Glomerular Filt Rate 135 ml/min (>60); GFR (African American) 164 ML/MIN (>60)
[2024-05-26] MEDS: SODIUM CHLORIDE 0.9% 10ML SYR (RAD ONLY) 10 ML IV (15:03)
[2024-05-26] MEDS: IOPAMIDOL-370 (76%);100ML BOTTLE 75 ML IV (15:03)
== END 2024-05-26 23:59 | disposition home or self-care (01) ==
LOC: RAD 14:00
PROVIDERS: PCP Internal Medicine; Visit Provider Internal Medicine
DX: M54.2 Cervicalgia (principal); M25.519 Pain in unspecified shoulder; L98.9 Disorder of the skin and subcutaneous tissue, unspecified
CPT/HCPCS: 36415; 70491; 82565; 84520; Q9967

== ENCOUNTER 2024-06-23 08:56 | Outpatient (POV) | payer MEDICARE, OTHER, SELFPAY ==
--- OUTSIDE RECORDS SUMMARY | 2024-06-23 09:01 | XMS_ITS | Data Portability ---
Author Organization [place] [facility] [place] [facility] Address [address] [place] [address] Assessment No assessment recorded. Plan of Treatment Reminders Order Date Submit Date Provider Last Modified By Organization Details Last Modified Time Details Appointments None recorded. Lab urinalysis , dipstick, auto 2017 018 [facility], [address], [address], [place], [address], 8 17:45:53 Referral None recorded. Procedures None recorded. Surgeries None recorded. Imaging None recorded. Medication Orders doxycyclin e monohydrat e 100 mg capsule 2017 018 INTERFACE [facility], [address], [address], 8 17:45:58 Lotrisone 1 %-0.05 % topical cream 2017 018 INTERFACE [facility], [address], [address], 8 17:45:58 Patient TargetsNo targets recorded. Patient Instructions Encounter Date Encounter Id Patient Instructions Last Modified By Organization Details Last Modified Time 06/27/2017 [id number] healthy together [email or web address] Not availabl e 06/27/2017 17:45:53 balanitis: care instructions [email or web address] Not available 06/27/2017 17:45:53 Reason for Referral None Reported. Results Created Date Observation Date Name Description Value Unit Range Abnormal Flag Note LastModifiedBy Organization Detail LastModifiedTime 06/28/19 18 06/27/2017 urina lysis , dipst ick, auto Unknown Analyte Yellow Not Available [facility] [address] [facility] [address], [place], [address], 06/27/2017 15:35:14 06/28/19 18 06/27/2017 urina lysis , dipst ick, auto Unknown Analyte Clear Not Available [facility] [address], [place], [address], 06/27/2017 15:35:14 06/28/19 18 06/27/2017 urina lysis , dipst ick, auto Unknown Analyte 1.005 Not Available [facility] [address], [place], [address], 06/27/2017 15:35:14 06/28/19 18 06/27/2017 urina lysis , dipst ick, auto Unknown Analyte 8.0 Not Available [facility] [address], [place], [address], 06/27/2017 15:35:14 06/28/19 18 06/27/2017 urina lysis , dipst ick, auto Unknown Analyte Negati ve Not Available [facility] [address], [place], [address], 06/27/2017 15:35:14 06/28/19 18 06/27/2017 urina lysis , dipst ick, auto Unknown Analyte Negati ve Not Available [facility] [address], [place], [address], 06/27/2017 15:35:14 06/28/19 18 06/27/2017 urina lysis , dipst ick, auto Unknown Analyte Negtiv e Not Available [facility] [address], [place], [address], 06/27/2017 15:35:14 06/28/19 18 06/27/2017 urina lysis , dipst ick, auto Unknown Analyte Normal Not Available [facility] [address] [place] [address] [address], [place], [address], 06/27/2017 15:35:14 06/28/19 18 06/27/2017 urina lysis , dipst ick, auto Unknown Analyte Negati ve Not Available [facility] [address], [place], [address], 06/27/2017 15:35:14 06/28/19 18 06/27/2017 urina lysis , dipst ick, auto Unknown Analyte Normal Not Available [facility] [address], [place], [address], 06/27/2017 15:35:14 06/28/19 18 06/27/2017 urina lysis , dipst ick, auto Unknown Analyte Negati ve Not Available [facility] [address], [place], [address], 06/27/2017 15:35:14 06/28/19 18 06/27/2017 urina lysis , dipst ick, auto Unknown Analyte Negati ve Not Available [facility] [address], [place], [address], 06/27/2017 15:35:14 06/28/19 18 06/27/2017 urina lysis , dipst ick, auto Unknown Analyte Clean Catch Not Available [facility] [address], [place], [address], 06/27/2017 15:35:14 06/28/19 18 06/27/2017 urina lysis , dipst ick, auto Unknown Analyte Automa oscar Not Available [facility] [address], [place], [address], 06/27/2017 15:35:14 Result Notes None recorded. Problems No Known Problems Medical Equipment None Reported. Allergies No known drug allergies Medications Name Sig Start Date Stop Date Status Note LastModified by Organization Details LastModified Time doxycycline monohydrate 100 mg capsule Take 1 capsule twice a day by oral route. 2017 active Not Available Not Available Not Avai lable clotrimazole -betamethaso ne 1 %-0.05 % topical cream APPLY TO THE AFFECTED AND SURROUNDING AREAS OF SKIN TWICE DAILY IN THE MORNING AND EVENING FOR 2 WEEKS 2019 active Not Available Not Available Not Avai lable metformin active Not Available Not Griselda ilable Not Available lovastatin active Not Available Not Av ailable Not Available Vitals Date Recorded Body weight Heart rate Systolic blood pressure Diastolic blood pressure Provider Name and Address Organization Details Last Updated DateTime 06/27/2017 957651.68 g 70 /min 140 mm[Hg] 81 mm[Hg] Kya Beatty [facility] 06/27/2017 15:31:55 Social History Question Answer Notes LastModified by Organizat ion Details LastModified Time Tobacco Smoking Status Current Every Day Smoker Kya Beatty [facility] 06/27/2017 15:32:52 What Was The Date Of Your Most Recent Tobacco Screening? 06/27/2017 Information n ot available 04/22/2019 How Much Tobacco Do You Smoke? 2 PPD bbatten Information not available 06/27/2017 Sex: Unknown Functional Status None recorded. Mental Status None recorded. Family History Nothing Reported. Medical History Condition Response Diabetes Y Hypertension Y Kidney Stones Y Depression Y Asthma Y Past Encounters Encounter ID Performer Location Encounter Start Date Encounter Closed Date Diagnosis/Indication Diagnosis SNOMED-CT Code Diagnosis ICD10 Code Diagnosis Note [id number] AMRIT GARCIA MD [place] [facility] [address] [place] [address] 06/27/2017 14:38:43 06/27/2017 16:20:49 Balanitis 99367486 N48.1 we will try Lotrisone cream applied to the meatus. If he is not improved at follow-up in 2 weeks we will consider cystoscopy Chronic prostatitis 1989 5009 N41.1 we will treat him with doxycyclin e. Health Concerns Section Related Observation LastModified by Organization Detai ls LastModified Time None Recorded Concern Status LastModified by Organization Details LastModified Time None Recorded Advance Directives Directive None Recorded Payers Encounter Date Sequence Insurance Name Policy Number Policy Boyd Covered Member ID Boyd Member ID Guarantor Name 06/27/2017 1 SIKHISM [employer] [facility] ([id number]) [id number] Carlos Chavarria [id number] [facility] Nelly Chavarria Notes Date Note Type Note Provider Name and Address Organization Details Recorded Time 06/27/2017 text/html patient has previously seen me years ago in [place] for chronic prostatitis. For the last 2 months she's had irritation discomfort at the tip of the penis. This is not necessarily associated with voiding he has previously tried Diflucan on 2 occasions without resolution or change of symptoms. He has had no redness. He has had no increased frequency. He apparently was seen in the emergency room at [facility] 2 months ago when had a CT scan which demonstrated a distal ureteral stone by his description. This was 4 mm. He has had no further flank pain but did not knowingly collect the stone. AMRIT GARCIA MD [facility] [place], [address], [facility] 06/27/2017 17:46:54
--- NOTE | 2024-06-23 09:43 | EXP.PAIN.OV ---
HPI Data of Consult Patient: new to practice Consult date: 06/23/24 Requesting Physician: Rolanda Montejo APRN Primary Care Provider: Pop Dunham MD Consult Narrative Reason for consult: Neck pain, right arm/hand numbness History of present illness: Mr. Chavarria is a 64 year old male who presents today as a new patient. He is a referral from Dr. Dunham's office. Patient states he has been experiencing more neck pain that does radiate down the right shoulder, arm and into his right thumb with numbness and tingling. Patient states this has been going on for at least since March unrelated to any specific trauma or injury. He does describe it as a fairly constant aching sensation with numbness and tingling. He does state the pain interferes with his ability perform activities of daily living such as cooking and cleaning. 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 He has tried [id number] Tylenol along with heat and ice and topicals with minimal relief. Patient has also done massage therapy and states this will help some along with a massager at home and a TENS unit. Patient does state that there has been times where it does even bother him while he sleeping. Patient states he has also been using a magnesium spray that does help him sleep but does not seem to make any difference on the pain sensations. Patient is interested in any help we may be able to provide. Patient states he is very active and exercises daily and has even lost a substantial amount of weight. his Khoa has been reviewed and is appropriate. CC: Rolanda Montejo APRN [facility] Disclaimer: The information contained in this section may have been updated after the patient was seen, as this information can be updated by other users. Social History Smoking Status: Current every day smoker tobacco type: cigarettes packs per day: 2 alcohol intake: never substance use type: denies use current occupational status: employed Travel in the last 8 weeks: None housing: house Review of Systems Review of Systems Review of systems:: pertinent systems reviewed and negative unless documented below Review of systems (narrative): Review of Systems: General: No recent weight changes, no fever, no sleep disturbances Respiratory: No cough, no shortness of air, no recurring pulmonary infections Cardiovascular/peripheral vascular: No chest pain, no palpitations, no edema, no shortness of breath Gastrointestinal: No new onset incontinence, normal bowel movements reported Genitourinary: No new onset incontinence Musculoskeletal: Neck pain, right arm pain, right thumb numbness tingling Psychiatric: [Normal mood/affect] Neurological: [Denies weakness in extremities], [denies balance issues] Meds Home Medications and Allergies Home Medications ?Medication ?Instructions ?Recorded ?Confirmed ?Type fexofenadine-pseudoephedrine ER 1 tab PO DAILY PRN allergy 11/06/23 06/17/24 Rx 180 mg-240 mg tablet,ext.release symptoms #60 tabs 24 hr (Kay-D 24 Hour) atorvastatin 20 mg tablet See Rx Instructions .Route 11/14/23 06/17/24 Rx .COMPLEX #90 tabs losartan 25 mg tablet 25 mg PO DAILY #90 tabs 01/29/24 06/17/24 Rx oseltamivir 75 mg capsule (Tamiflu) 75 mg PO BID 5 days #10 caps 02/28/24 06/17/24 Rx methocarbamol 500 mg tablet 500 mg PO HS #7 tabs 03/08/24 06/17/24 Rx metformin 500 mg tablet See Rx Instructions .Route 03/10/24 06/17/24 Rx .COMPLEX #360 tabs ibuprofen 800 mg tablet 800 mg PO TID PRN Pain and 03/12/24 06/17/24 Rx inflammation #90 tabs clopidogrel 75 mg tablet See Rx Instructions .Route 05/23/24 06/17/24 Rx .COMPLEX #90 tabs gabapentin 300 mg capsule 300 mg PO DAILY #90 caps 06/17/24 06/17/24 Rx New Prescriptions to Start Prescriptions: Allergies Allergy/AdvReac Type Severity Reaction Status Date / Time prednisone (PREDNISONE) Allergy Unknown Verified 06/17/24 09:08 Objective Narrative: Physical Exam: General: Alert and oriented x3, no acute distress, pleasant and cooperative Lungs: Respirations even and unlabored, symmetrical chest expansion Eyes: PERRL Musculoskeletal: Flexion and extension of cervical [spine] somewhat guarded secondary to pain, [antalgic gait noted] positive Spurling's test Neurological: Speech clear, no gross sensory deficit Additional findings Additional findings: FINDINGS: There is motion on many sequences which limits overall image quality. Limited images of the posterior fossa are unremarkable. Alignment is normal. Cervical spinal cord is grossly unremarkable. There is a multiseptated cystic mass in the subcutaneous tissues at the C2-3 level measuring 24 mm, located in the midline. C2-3: Unremarkable C3-4: Unremarkable C4-5: There is moderate right facet arthropathy with mild right neural foraminal narrowing. No canal stenosis is present. C5-6: There is moderate right facet arthropathy with mild right neural foraminal narrowing. No canal stenosis is identified. C6-7: Unremarkable C7-T1: Unremarkable IMPRESSION: Mild degenerative change at the C4-5 and C5-6 levels with right-sided facet arthropathy and mild right neural foraminal narrowing. Reviewed, Interpreted and Dictated by Cely Roper MD Transcribed by Concepción Martinez Assessment and Plan *Assessment and plan (1) Cervicalgia: Status: Chronic Category: Medical Code(s): M54.2 - Cervicalgia (2) Cervical radicular pain: Problem Comment: Right shoulder and right arm symptoms. Status: Chronic Category: Medical Code(s): M54.12 - Radiculopathy, cervical region (3) Degenerative disc disease, cervical: Status: Acute Category: Medical Code(s): M50.30 - Other cervical disc degeneration, unspecified cervical region (4) Facet arthropathy, cervical: Status: Acute Category: Medical Code(s): M47.812 - Spondylosis without myelopathy or radiculopathy, cervical region Plan Patient is experiencing worsening pain in their neck with radiating tingling and burning sensations into their right upper extremity with numbness and tingling going to his right thumb. Patient did have limited range of motion of his cervical spine with a positive Spurling's test. I did discuss with the patient that I do believe they would benefit from a cervical epidural steroid injection. Risk and benefits were discussed with patient and they would like to proceed forward with this plan of care. Patient has tried and failed conservative therapy including oral medications, heat and ice, topicals, at home stretching exercise for longer than 12 weeks as well as massage therapy. Patient has not had any prior cervical injections in the past. This will be a diagnostic injection. Patient states in the past he has had a reaction to prednisone where he felt like his heart was racing. I did discuss with the patient that we do primarily use Depo-Medrol that is still a steroid but that we can use 40 mg versus 80 mg. Patient does have Plavix on his medications list we will reach out to his primary care and confirm he can stop this medication prior to this procedure. Patient is also a diabetic and he was counseled this may increase his glucose levels. Patient was counseled that if his numbers are closer to 300 he would have to be rescheduled. Patient will be scheduled for a DAVE C5-C6 under fluoroscopy. I will also order the patient a compounded cream. Patient has been instructed to contact the clinic with any concerns before the next appointment. Dr. Blue has reviewed this note and agrees with this plan of care. This note was dictated using voice recognition software and make contain errors or omissions. All injections are used with Lidocaine, Bupivacaine and Depo Medrol. Occasionally urine drug screen is needed to verify patient's compliance with our office pain contract. This is ordered based off specific treatments related to chronic pain with the potential to abuse certain medications.
[2024-06-23 12:16] VITALS: BP 141/70; PULSE 82; RESP 18; O2SAT 99; BMI 30.7
== END 2024-06-23 23:59 | disposition home or self-care (01) ==
LOC: SC.PAIN 08:58
PROVIDERS: PCP Internal Medicine; Visit Provider Nurse Practitioner Family
DX: M50.10 Cervical disc disorder with radiculopathy, unspecified cervical region (principal); M47.22 Other spondylosis with radiculopathy, cervical region; Z73.89 Other problems related to life management difficulty; F17.210 Nicotine dependence, cigarettes, uncomplicated
CPT/HCPCS: 99202; G0463

== ENCOUNTER 2024-07-15 09:22 | Day surgery (SDC) | payer MEDICARE, OTHER, SELFPAY ==
[2024-07-15 09:34] VITALS: BP 172/93; PULSE 61; RESP 16; TEMP 36.4; O2SAT 97; BMI 29.1
[2024-07-15] MEDS: DEXAMETHASONE 10MG/ML 1ML VIAL 10 MG (10:00)
[2024-07-15 10:01] VITALS: BP 170/93; PULSE 77; RESP 18; O2SAT 97
[2024-07-15 10:03] VITALS: BP 170/93; PULSE 77; RESP 18; O2SAT 97
[2024-07-15 10:08] VITALS: BP 189/91; PULSE 69; RESP 16; O2SAT 98
--- NOTE | 2024-07-15 11:38 | P.PCN_ITS ---
Procedure Date: 07/15/24 Time: 10:00 Anesthesiologist:: Benjamin Mccollum CRNA Complications:: None Pre-procedure Diagnosis:: Degenerative disc cervical spine multilevels. Cervical radiculopathy. Cervical facet arthropathy. Cervical spondylosis. Post-procedure Diagnosis:: Same. Indications for Procedure:: Patient is a very pleasant 64-year-old male who comes our clinic today for cervical epidural steroid injection. Patient continues with posterior cervical neck pain as well as right arm and hand radicular symptoms. He rates his pain 6/10. Procedure Details:: Procedure:Cervical epidural steroid injection Informed consent was obtained and the risks and benefits of the procedure were explained to the patient. The patient was taken to the procedure room and noninvasive monitors placed, including noninvasive blood pressure cuff and pulse oximeter. The neck was prepped using Chloraprep as a cleansing solution. The C6- C7 interspace was viewed using fluroscopy. The skin and subcutaneous tissues were anesthetized using lidocaine 1.5% and a 25-gauge needle. After this an 18- gauge Touhy epidural needle was placed into the C6-C7 interspace under fluroscopy guidance and advanced using loss of resistance to air until the epidural space was encountered. After confirmation of needle placement in the epidural space using contrast dye, a solution containing normal saline, 2 mL and Depo-Medrol 80 mg was incrementally injected into the cervical epidural space.~ The patient tolerated the procedure well with no complications. The patient was observed in the Pain Clinic and then discharged home neurologically intact. Plan and Disposition:: Patient was discharged without incident.
== END 2024-07-15 10:08 | disposition home or self-care (01) ==
LOC: SC.PAINP 09:24
PROVIDERS: PCP Internal Medicine; Visit Provider Nurse Anesthetist, Certified Registered
DX: M50.30 Other cervical disc degeneration, unspecified cervical region (principal); M47.12 Other spondylosis with myelopathy, cervical region
CPT/HCPCS: 62321; J1100

== ENCOUNTER 2024-08-05 09:47 | Outpatient (POV) | payer MEDICARE, OTHER, SELFPAY ==
--- OUTSIDE RECORDS SUMMARY | 2024-08-05 09:52 | XMS_ITS | Data Portability ---
Author Organization [place] [facility] [place] [facility] Address [address] [place] [address] Assessment No assessment recorded. Plan of Treatment Reminders Order Date Submit Date Provider Last Modified By Organization Details Last Modified Time Details Appointments None recorded. Lab urinalysis , dipstick, auto 2017 018 [facility], [address], [place], [address], 8 17:45:53 Referral None recorded. Procedures None recorded. Surgeries None recorded. Imaging None recorded. Medication Orders doxycyclin e monohydrat e 100 mg capsule [address] [facility], [address], [address], 8 17:45:58 Lotrisone 1 %-0.05 % topical cream [address] [facility], [address], [address], 8 17:45:58 Patient TargetsNo targets recorded. Patient Instructions Encounter Date Encounter Id Patient Instructions Last Modified By Organization Details Last Modified Time 06/27/2017 [id number] healthy together Not availabl e 06/27/2017 17:45:53 balanitis: care instructions [email or web address] Not available 06/27/2017 17:45:53 Reason for Referral None Reported. Results Created Date Observation Date Name Description Value Unit Range Abnormal Flag Note LastModifiedBy Organization Detail LastModifiedTime 06/28/19 18 06/27/2017 urina lysis , dipst ick, auto Unknown Analyte Yellow Not Available [facility] [address] [facility] [address], [place], [address], 06/27/2017 15:35:14 06/28/19 18 06/27/2017 urina lysis , dipst ick, auto Unknown Analyte Clear Not Available [facility] [address], [place], [address], 06/27/2017 15:35:14 06/28/19 18 06/27/2017 urina lysis , dipst ick, auto Unknown Analyte 1.005 Not Available [facility] [address], [place], [address], 06/27/2017 15:35:14 06/28/19 18 06/27/2017 urina lysis , dipst ick, auto Unknown Analyte 8.0 Not Available [facility] [address], [place], [address], 06/27/2017 15:35:14 06/28/19 18 06/27/2017 urina lysis , dipst ick, auto Unknown Analyte Negati ve Not Available [facility] [address], [place], [address], 06/27/2017 15:35:14 06/28/19 18 06/27/2017 urina lysis , dipst ick, auto Unknown Analyte Negati ve Not Available [facility] [address], [place], [address], 06/27/2017 15:35:14 06/28/19 18 06/27/2017 urina lysis , dipst ick, auto Unknown Analyte Negtiv e Not Available [facility] [address], [place], [address], 06/27/2017 15:35:14 06/28/19 18 06/27/2017 urina lysis , dipst ick, auto Unknown Analyte Normal Not Available [facility] [address] [place] [address] [address], [place], [address], 06/27/2017 15:35:14 06/28/19 18 06/27/2017 urina lysis , dipst ick, auto Unknown Analyte Negati ve Not Available [facility] [address], [place], [address], 06/27/2017 15:35:14 06/28/19 18 06/27/2017 urina lysis , dipst ick, auto Unknown Analyte Normal Not Available [facility] [address], [place], [address], 06/27/2017 15:35:14 06/28/19 18 06/27/2017 urina lysis , dipst ick, auto Unknown Analyte Negati ve Not Available [facility] [address], [place], [address], 06/27/2017 15:35:14 06/28/19 18 06/27/2017 urina lysis , dipst ick, auto Unknown Analyte Negati ve Not Available [facility] [address], [place], [address], 06/27/2017 15:35:14 06/28/19 18 06/27/2017 urina lysis , dipst ick, auto Unknown Analyte Clean Catch Not Available [facility] [address], [place], [address], 06/27/2017 15:35:14 06/28/19 18 06/27/2017 urina lysis , dipst ick, auto Unknown Analyte Automa oscar Not Available [facility] [address], [place], [address], 06/27/2017 15:35:14 Result Notes None recorded. Problems [...] Address Organization Details Last Updated DateTime 06/27/2017 546123.68 g 70 /min 140 mm[Hg] 81 mm[Hg] Kya Beatty [facility] 06/27/2017 15:31:55 Social History Question Answer Notes LastModified by Organizat ion Details LastModified Time Tobacco Smoking Status Current Every [facility]2017 15:32:52 What Was The Date Of Your Most Recent Tobacco Screening? 06/27/2017 Information n ot available 04/22/2019 How Much Tobacco Do You Smoke? 2 PPD bbatten Information not available 06/27/2017 Sex: Unknown Functional Status None recorded. Mental Status None recorded. Family History Nothing Reported. Medical History Condition Response Kidney Stones Y Depression Y Diabetes Y Asthma Y Hypertension Y Past Encounters Encounter ID Performer Location Encounter Start Date Encounter Closed Date Diagnosis/Indication Diagnosis SNOMED-CT Code Diagnosis ICD10 Code Diagnosis Note [id number] AMRIT GARCIA MD [place] [facility] [address] [place] [address] 06/27/2017 14:38:43 06/27/2017 16:20:49 Balanitis [id number] N48.1 we will try Lotrisone cream applied [...] Recorded Advance Directives Directive None Recorded Payers Insurance Date Sequence Insurance Name Policy Number Policy Boyd Covered Member ID Boyd Member ID Guarantor Name 06/27/2017 1 [employer] [facility] ([id number]) [id number] Carlos Villegas samson [id number] [facility] Nelly Chavarria Notes Date Note Type Note Provider Name and Address Organization Details Recorded Time 06/27/2017 text/html patient has previously seen me years ago in [place] for chronic prostatitis. For the last 2 months she's had irritation discomfort at the tip of the penis. This is not necessarily associated with voiding he has previously tried Diflucan on 2 occasions without resolution or change of symptoms. He has had no redness. He has had no increased frequency. He apparently was seen in the emergency room at [facility] 2 months ago when had a CT scan which demonstrated a distal ureteral stone by his description. This was 4 mm. He has had no further flank pain but did not knowingly collect the stone. AMRIT GARCIA MD [facility] [place], [address], [facility] 06/27/2017 17:46:54
--- NOTE | 2024-08-05 09:58 | A.OFFVIS_ITS ---
[facility] Disclaimer: The information contained in this section may have been updated after the patient was seen, as this information can be updated by other users. Medical History HTN (hypertension) Lumbosacral spondylosis COPD (chronic obstructive pulmonary disease) HLD (hyperlipidemia) TIA (transient ischemic attack) Polyneuropathy Diabetes Family History Other Unknown family medical history Social History Smoking Status: Current every day smoker tobacco type: cigarettes packs per day: 2 alcohol intake: never substance use type: denies use current occupational status: employed Travel in the last 8 weeks?: None housing: house PM Subjective & Objective Subjective Subjective:: Patient is a pleasant 64-year-old male who presents today for follow-up of his cervical epidural steroid injection C6-C7 on 07/15/2024. Today he rates his pain a 0 out of 10. he denies any new trauma or injury. He states he has had at least 50% improvement following this injection. He states he is not having the radicular symptoms like what he had been. He does state however that he is having more stiffness but this is much better compared to his previous pain. He does state that he has been able to sleep much easier. Patient has continued conservative measures including Tylenol, heat ice, topicals, massage therapy, at home TENS unit and daily exercise. He has prescribed compounded cream from our office. He states he did get this and it does seem to be helping. His Khoa has been reviewed and is appropriate. Review of Systems: General: No recent weight changes, no fever, no sleep disturbances Respiratory: No cough, no shortness of air, no recurring pulmonary infections Cardiovascular/peripheral vascular: No chest pain, no palpitations, no edema, no shortness of breath Gastrointestinal: No new onset incontinence, normal bowel movements reported Genitourinary: No new onset incontinence Musculoskeletal: Neck pain Psychiatric: [Normal mood/affect] Neurological: [Denies weakness in extremities], [denies balance issues] Pain at rest (0-10 scale): 0 Objective Objective:: Physical Exam: General: Alert and oriented x3, no acute distress, pleasant and cooperative Lungs: Respirations even and unlabored, symmetrical chest expansion Eyes: PERRL Musculoskeletal: Flexion and extension of cervical [spine] somewhat guarded secondary to pain Neurological: Speech clear, no gross sensory deficit Has patient had previous pain injection?: Yes Percent improvement in pain since last injection: 50% Conservative treatment options previously tried: Home exercise plan Length of treatment: Longer than 12 weeks Meds Home Medications and Allergies Home Medications ?Medication ?Instructions ?Recorded ?Confirmed ?Type fexofenadine-pseudoephedrine ER 1 tab PO DAILY PRN all ergy 11/06/23 07/15/24 Rx 180 mg-240 mg tablet,ext.release symptoms #60 tabs 24 hr (Kay-D 24 Hour) atorvastatin 20 mg tablet See Rx Instructions .Route 0 11/14/23 07/15/24 Rx .COMPLEX #90 tabs losartan 25 mg tablet 25 mg PO DAILY #90 tabs /08/2607/15/24 Rx oseltamivir 75 mg capsule (Tamiflu) 75 mg PO BID 5 day s #10 caps 02/28/24 07/15/24 Rx methocarbamol 500 mg tablet 500 mg PO HS #7 tabs 03/0807/15/24 Rx metformin 500 mg tablet See Rx Instructions .Route 0 03/10/24 07/15/24 Rx .COMPLEX #360 tabs ibuprofen 800 mg tablet 800 mg PO TID PRN Pain and 0 03/12/24 07/15/24 Rx inflammation #90 tabs clopidogrel 75 mg tablet See Rx Instructions .Route 0 05/23/24 07/15/24 Rx .COMPLEX #90 tabs gabapentin 300 mg capsule 300 mg PO DAILY #90 caps 07/15/24 Rx New Prescriptions to Start Prescriptions: Allergies Allergy/AdvReac Type Severity Reaction Status Date / Time prednisone (PREDNISONE) Allergy Unknown Verified 06/17/24 09:08 Assessment and Plan *Assessment and plan (1) Degenerative disc disease, cervical: Status: Acute Category: Medical Code(s): M50.30 - Other cervical disc degeneration, unspecified cervical region (2) Cervicalgia: Status: Chronic Category: Medical Code(s): M54.2 - Cervicalgia (3) Facet arthropathy, cervical: Status: Acute Category: Medical Code(s): M47.812 - Spondylosis without myelopathy or radiculopathy, cervical region Plan Patient has had significant improvement following his cervical epidural and does not require any additional injection therapy at this time. Patient will return to clinic in 6 weeks for reevaluation of symptoms and plan of care. Patient has been instructed to contact the clinic with any concerns before the next appointment. Dr. Blue has reviewed this note and agrees with this plan of care. This note was dictated using voice recognition software and make contain errors or omissions. All injections are used with Lidocaine, Bupivacaine and dexamethasone. Occasionally urine drug screen is needed to verify patient's compliance with our office pain contract. This is ordered based off specific treatments related to chronic pain with the potential to abuse certain medications.
[2024-08-05 10:21] VITALS: BP 140/84; PULSE 80; RESP 12; O2SAT 98; BMI 29.2
== END 2024-08-05 23:59 | disposition home or self-care (01) ==
LOC: SC.PAIN 09:51
PROVIDERS: PCP Internal Medicine; Visit Provider Nurse Practitioner Family
DX: M47.812 Spondylosis without myelopathy or radiculopathy, cervical region (principal); M50.30 Other cervical disc degeneration, unspecified cervical region
CPT/HCPCS: 99212; G0463

== ENCOUNTER 2024-09-10 14:12 | Outpatient (CLI) | payer MEDICARE, OTHER, SELFPAY ==
--- OUTSIDE RECORDS SUMMARY | 2024-09-10 14:14 | XMS_ITS | Clinical Summary ---
Author Organization [facility] [place] [address] Care Team Providers Care Manager Budget Name Role Phone Unavailable Primary Care Provider Unavailabl e Social History Tobacco Use Types Packs/Day Years Used Date Smoking Tobacco: Never Assessed Sex and Gender Information Value Date Recorded Sex Assigned at Not on file Legal Sex Male 4:32 AM EDT Gender Identity Not on file Sexual Orientation Not on file Plan of Treatment Health Maintenance Due Date Last Done Comments Annual Wellness Exam 1961 Hepatitis C Screening 1976 DTaP/TDaP/Td (1 - Tdap) 1977 Cologuard 06/24/2003 Colon Cancer Screening 06/24/2003 Colonoscopy 06/24/2003 FIT 06/24/2003 Sigmoidoscopy 06/24/2003 Virtual Colonography 06/24/2003 Pneumococcal Vaccine 50+ (1 of 1 - PCV) 2008 Zoster (1 of 2) 2008 COVID-19 Vaccine (2023-2 5 season) 2023 Influenza Vaccine (#1) 2024 Hepatitis B Vaccine Aged Out No longe r eligible based on patient's age to complete this topic Meningococcal B Vaccine Aged Out No l onger eligible based on patient's age to complete this topic
--- OUTSIDE RECORDS SUMMARY | 2024-09-10 14:14 | XMS_ITS | Clinical Summary ---
Author Organization Healthcare Address [address] [place] [address] Care Team Providers Care Entry Level Chemist Name Role Phone Pop Dunham MD Primary Care Provider [phone] Social History Tobacco Use Types Packs/Day Years Used Date Smoking Tobacco: Every Day Sex and Gender Information Value Date Recorded Sex Assigned at Not on file Legal Sex Male 8:55 PM EDT Gender Identity Not on file Sexual Orientation Not on file Last Filed Vital Signs Vital Sign Reading Time Taken Comments Blood Pressure - - Pulse - - Temperature - - Respiratory Rate - - Oxygen Saturation - - Inhaled Oxygen Concentration - - Weight 103 kg (227 lb 0.1 oz) 10/12/2015 9:55 AM EDT Height 177.8 cm (5' 10 ) 10/12/2015 9:55 AM EDT Body Mass Index 32.57 10/12/2015 9:55 AM EDT Plan of Treatment Not on file Care Teams Entry Level Chemist Relationship Specialty Start Date End Date Pop Dunham MD [address] [facility] [address] [place] [address] PCP - General 07/16/20
[2024-09-10 14:27] LABS: Hematocrit 44.9 % (42.0-52.0); Hemoglobin 14.2 g/dL (14.1-18.0); Immature Granulocytes % 0.1 %; Mean Corpuscular HGB Conc 31.6 g/dL (31.8-35.4); Mean Corpuscular Hemoglobin 28.2 pg (27.0-31.2); Mean Corpuscular Volume 89.1 fl (80-94); Nucleated Red Blood Cells % 0 %; Platelet Count 193 K/mm3 (142-424); Red Blood Count 5.04 M/mm3 (4.60-6.20); Red Cell Distribution Width-SD 44.1 fL; White Blood Count 7.4 K/mm3 (4.8-10.8)
[2024-09-10 14:31] LABS: Albumin Level 4.3 g/dl (3.5-5.0); Chloride 103 mmol/L (98-107); Potassium 4.8 mmoL/L (3.5-5.1); Sodium 139 mmol/L (136-145)
[2024-09-10 14:33] LABS: Blood Urea Nitrogen 13 mg/dl (9-20); Creatinine,Serum 0.60 mg/dl (0.66-1.25); Estimated Glomerular Filt Rate 135 ml/min (>60); GFR (African American) 163 ML/MIN (>60)
[2024-09-10 14:34] LABS: Alanine Aminotransferase 20 U/L (12-78); Albumin/Globulin Ratio 1.4 (1.1-1.8); Alkaline Phosphatase 62 U/L (38-126); Anion Gap 13.8 mEq/L (5-15); Aspartate Amino Transferase 40 U/L (17-59); Bilirubin,Total 0.3 mg/dl (0.2-1.3); Calcium 9.0 mg/dl (8.4-10.2); Carbon Dioxide 27 mmol/L (22.0-30.0); Cholesterol 180 mg/dl (140-200); Globulin 3.0 g/dL (1.3-3.2); Glucose 126 mg/dl (74-100); HDL Cholesterol 38 mg/dl (40-60); Total Protein,Serum 7.3 g/dl (6.3-8.2); Triglycerides 179 mg/dl (30-150)
[2024-09-10 14:59] LABS: Hemoglobin A1C 7.9 % (4.0-6.0)
== END 2024-09-10 23:59 | disposition home or self-care (01) ==
LOC: LAB.DROPOF 14:13
PROVIDERS: PCP Internal Medicine; Visit Provider Internal Medicine
DX: I10 Essential (primary) hypertension (principal); E11.59 Type 2 diabetes mellitus with other circulatory complications; E78.5 Hyperlipidemia, unspecified; E11.42 Type 2 diabetes mellitus with diabetic polyneuropathy
CPT/HCPCS: 80053; 80061; 82043; 82570; 83036; 85025

== ENCOUNTER 2024-09-15 08:40 | Outpatient (POV) | payer MEDICARE, OTHER, SELFPAY ==
--- OUTSIDE RECORDS SUMMARY | 2024-09-15 08:43 | XMS_ITS | Data Portability ---
Author Organization [place] [facility] [place] Address [address] [facility] [address] [place] [address] Assessment No assessment recorded. Plan of Treatment Reminders Order Date Submit Date Provider Last Modified By Organization Details Last Modified Time Details Appointments None recorded. Lab urinalysis , dipstick, auto 2017 018 [email or web address] [facility], [address], [place], [address], 8 17:45:53 Referral None recorded. Procedures None recorded. Surgeries None recorded. Imaging None recorded. Medication Orders doxycyclin e monohydrat e 100 mg capsule 2017 018 INTERFACE [facility], [address], [address], 8 17:45:58 Lotrisone 1 %-0.05 % topical cream 2017 018 INTERFACE [facility], [address], [address], 8 17:45:58 Patient TargetsNo targets recorded. Patient Instructions Encounter Date Encounter Id Patient Instructions Last Modified By Organization Details Last Modified Time 06/27/2017 [id number] healthy together Not availabl e 06/27/2017 17:45:53 balanitis: care instructions [email or web address] Not available 06/27/2017 17:45:53 Reason for Referral None Reported. Results Created Date Observation Date Name Description Value Unit Range Abnormal Flag Note LastModifiedBy Organization Detail LastModifiedTime 06/28/19 18 06/27/2017 urina lysis , dipst ick, auto Unknown Analyte Yellow Not Available [facility] [address], [place], [address], 06/27/2017 15:35:14 06/28/19 18 06/27/2017 urina lysis , dipst ick, auto Unknown Analyte Clear Not Available [facility] [address], [place], [address], 06/27/2017 15:35:14 06/28/19 18 06/27/2017 urina lysis , dipst ick, auto Unknown Analyte 1.005 Not Available [facility] [address], [place], [address], 06/27/2017 15:35:14 06/28/19 18 06/27/2017 urina lysis , dipst ick, auto Unknown Analyte 8.0 Not Available [facility] [address], [place], [address], 06/27/2017 15:35:14 06/28/19 18 06/27/2017 urina lysis , dipst ick, auto Unknown Analyte Negati ve Not Available [facility] [address], [place], [address], 06/27/2017 15:35:14 06/28/19 18 06/27/2017 urina lysis , dipst ick, auto Unknown Analyte Negati ve Not Available [facility] [address], [place], [address], 06/27/2017 15:35:14 06/28/19 18 06/27/2017 urina lysis , dipst ick, auto Unknown Analyte Negtiv e Not Available [facility] [address], [place], [address], 06/27/2017 15:35:14 06/28/19 18 06/27/2017 urina lysis , dipst ick, auto Unknown Analyte Normal Not Available [facility] [address], [place], [address], 06/27/2017 15:35:14 06/28/19 18 06/27/2017 urina lysis , dipst ick, auto Unknown Analyte Negati ve Not Available [facility] [address], [place], [address], 06/27/2017 15:35:14 06/28/19 18 06/27/2017 urina lysis , dipst ick, auto Unknown Analyte Normal Not Available [facility] [address], [place], [address], 06/27/2017 15:35:14 06/28/19 18 06/27/2017 urina lysis , dipst ick, auto Unknown Analyte Negati ve Not Available [facility] [address], [place], [address], 06/27/2017 15:35:14 06/28/19 18 06/27/2017 urina lysis , dipst ick, auto Unknown Analyte Negati ve Not Available [facility] [address], [place], [address], 06/27/2017 15:35:14 06/28/19 18 06/27/2017 urina lysis , dipst ick, auto Unknown Analyte Clean Catch Not Available [facility] [address] [facility] [address], [place], [address], 06/27/2017 15:35:14 06/28/19 18 06/27/2017 urina lysis , dipst ick, auto Unknown Analyte Automa oscar Not Available [facility] [address] [facility] [address], [place], [address], 06/27/2017 15:35:14 Result Notes None recorded. Problems [...] Date Recorded Body weight Heart rate Systolic And Diastolic Provider Name and Address Organization Details Last Updated DateTime 06/27/2017 828460.68 g 70 /min 140/81 mm[Hg] Kya Beatty [facility] 06/27/2017 15:31:55 Social History Question Answer Notes LastModified by Organizat ion Details LastModified Time Tobacco Smoking Status Current Every Day Smoker Kya swartz [facility] 06/27/2017 15:32:52 What Was The Date Of [...] SNOMED-CT Code Diagnosis ICD10 Code Diagnosis Note [id number] AMRIT GARCIA MD [place] [facility] [address] [place] [address] 06/27/2017 14:38:43 06/27/2017 16:20:49 Balanitis [id number] N48.1 we will try Lotrisone cream applied [...] Boyd Member ID Guarantor Name 06/27/2017 1 [employer] [facility] (O) [id number] Carlos Villegas samson [id number] [facility] Nelly Chavarria Notes Date Note Type Note Provider Name and Address Organization Details Recorded Time 06/27/2017 text/html patient has previously seen me years ago in [place] for chronic prostatitis. For the last 2 months she's had irritation discomfort at the tip of the penis. This is not necessarily associated with voiding he has previously tried Diflucan on 2 occasions without resolution or change of symptoms. He has had no redness. He has had no increased frequency. He apparently was seen in the emergency room at [facility] 2 months ago when had a CT scan which demonstrated a distal ureteral stone by his description. This was 4 mm. He has had no further flank pain but did not knowingly collect the stone. AMRIT GARCIA MD [facility] [place], [address], [facility] 06/27/2017 17:46:54
--- OUTSIDE RECORDS SUMMARY | 2024-09-15 08:43 | XMS_ITS | Clinical Summary ---
Author Organization [facility] [place] [address] Care Team Providers Care Summer Analyst Name Role Phone Unavailable Primary Care Provider [...]
--- OUTSIDE RECORDS SUMMARY | 2024-09-15 08:44 | XMS_ITS | Clinical Summary ---
Author Organization Healthcare Address [address] [place] [address] Care Team Providers Care Acidizer Water Well Name Role Phone Pop Dunham MD Primary Care Provider [phone] Social History Tobacco Use Types Packs/Day Years [...] of Treatment Not on file Care Teams Acidizer Water Well Relationship Specialty Start Date End Date Pop Dunham MD [address] [facility] [address] [place] [address] PCP - General 07/16/20
--- NOTE | 2024-09-15 08:58 | EXP.PAIN.SOA ---
[facility] Disclaimer: The information contained in this section may have been updated after the patient was seen, as this information can be updated by other users. Medical History HTN (hypertension) Lumbosacral spondylosis COPD (chronic obstructive pulmonary disease) HLD (hyperlipidemia) TIA (transient ischemic attack) Polyneuropathy Diabetes Family History Other Unknown family medical history Social History Smoking Status: Current every day smoker tobacco type: cigarettes packs per day: 2 alcohol intake: never substance use type: denies use current occupational status: other Travel in the last 8 weeks?: None housing: house PM Subjective & Objective Subjective Subjective:: Patient is a pleasant 64-year-old male who presents today for 6-week follow-up of his cervical epidural C6-C7 from July. Patient rates his pain today a 1 out of 10. He denies any new trauma or injury. He does state that he is still been doing wonderful overall and only has complaints of stiffness in his neck. Patient states he is still not had the radicular symptoms return. He states he is able to move around easier and sleep better since having this injection. Patient will occasionally still use the compounded cream from our office. His Khoa has been reviewed and is appropriate. Review of Systems: General: No recent weight changes, no fever, no sleep disturbances Respiratory: No cough, no shortness of air, no recurring pulmonary infections Cardiovascular/peripheral vascular: No chest pain, no palpitations, no edema, no shortness of breath Gastrointestinal: No new onset incontinence, normal bowel movements reported Genitourinary: No new onset incontinence Musculoskeletal: Neck pain Psychiatric: [Normal mood/affect] Neurological: [Denies weakness in extremities], [denies balance issues] Pain at rest (0-10 scale): 1 Objective Objective:: Physical Exam: General: Alert and oriented x3, no acute distress, pleasant and cooperative Lungs: Respirations even and unlabored, symmetrical chest expansion Eyes: PERRL Musculoskeletal: Flexion and extension of cervical [spine] within normal limits Neurological: Speech clear, no gross sensory deficit Has patient had previous pain injection?: No Conservative treatment options previously tried: Home exercise plan Length of treatment: Longer than 12 weeks Meds Home Medications and Allergies Home Medications ?Medication ?Instructions ?Recorded ?Confirmed ?Type fexofenadine-pseudoephedrine ER 1 tab PO DAILY PRN allergy 11/06/23 09/10/24 Rx 180 mg-240 mg tablet,ext.release symptoms #60 tabs 24 hr (Kay-D 24 Hour) metformin 500 mg tablet See Rx Instructions .Route 03/10/24 09/10/24 Rx .COMPLEX #360 tabs losartan 25 mg tablet 25 mg PO DAILY #90 tabs 09/11/24 Rx New Prescriptions to Start Prescriptions: Allergies Allergy/AdvReac Type Severity Reaction Status Date / Time prednisone (PREDNISONE) Allergy Unknown Verified 09/10/24 08:42 Assessment and Plan *Assessment and plan (1) Facet arthropathy, cervical: Status: Acute Category: Medical Code(s): M47.812 - Spondylosis without myelopathy or radiculopathy, cervical region (2) Degenerative disc disease, cervical: Status: Acute Category: Medical Code(s): M50.30 - Other cervical disc degeneration, unspecified cervical region Plan Patient continues to do well from his cervical epidural in July and does not require any additional injection therapy. We will follow-up with him in 3 months. Patient agrees with this plan of care. Patient has been instructed to contact the clinic with any concerns before the next appointment. Dr. Blue has reviewed this note and agrees with this plan of care. This note was dictated using voice recognition software and make contain errors or omissions. All injections are used with Lidocaine, Bupivacaine and dexamethasone. Occasionally urine drug screen is needed to verify patient's compliance with our office pain contract. This is ordered based off specific treatments related to chronic pain with the potential to abuse certain medications.
[2024-09-15 10:45] VITALS: BP 139/68; PULSE 68; RESP 18; O2SAT 98; BMI 30.4
== END 2024-09-15 23:59 | disposition home or self-care (01) ==
LOC: SC.PAIN 08:42
PROVIDERS: PCP Internal Medicine; Visit Provider Nurse Practitioner Family
DX: M47.812 Spondylosis without myelopathy or radiculopathy, cervical region (principal); M50.30 Other cervical disc degeneration, unspecified cervical region
CPT/HCPCS: 99212; G0463

== ENCOUNTER 2024-11-12 16:11 | Emergency (ER) | payer MEDICARE, OTHER, SELFPAY ==
[2024-11-12 16:17] VITALS: BP 103/73; PULSE 66; RESP 20; TEMP 36.5; O2SAT 97; BMI 30.1
--- NOTE | 2024-11-12 16:31 | HMH.EDGENADL ---
Discharge Plan Disposition Patient Disposition: Home, Self-Care Condition: Good Prescriptions Prescriptions: New lidocaine 5 % adhesive patch,medicated 1 patch topical DAILY Qty: 15 0RF Rx Instructions: leave on most painful area for up to 12 hrs methocarbamol 500 mg tablet 500 mg PO BID Qty: 30 0RF No Action doxycycline hyclate 100 mg capsule 100 mg PO BID Qty: 20 0RF fexofenadine-pseudoephedrine [Kay-D 24 Hour] 180-240 mg tablet extended release 24 hr 1 tab PO DAILY PRN (Reason: allergy symptoms) Qty: 60 0RF metformin 500 mg tablet See Rx Instructions .ROUTE .COMPLEX Qty: 360 1RF Dose Instruction: TAKE 2 TABLETS BY MOUTH TWICE DAILY WITH MEALS Rx Instructions: TAKE 2 TABLETS BY MOUTH TWICE DAILY WITH MEALS losartan 25 mg tablet 25 mg PO DAILY Qty: 90 1RF Referrals Follow up/Referrals: Pop Dunham MD [Primary Care Provider, Medical] - See instructions Activity Restrictions/Add. Instructions Additional Instructions/Restrictions: Tylenol Motrin, the muscle relaxer and the lidocaine patches for pain control. Return to the emergency department for any acute or worsening symptoms. Clinical Impressions Clinical Impression: Back pain Instructions Patient Instructions: DI for Low Back Pain Print Language Print Language: Ghanaian Discharge ED Provider: Kinjal Maldonado Adult HPI General Chief complaint: Back Pain/Injury Stated complaint: Pain on L side by kidney Time Seen by Provider: 11/12/24 16:31 Mode of Arrival: Ambulatory Source of Information: Patient Description of Symptoms (Recalled from ER Triage Doc. by RN): patient presents to the ED for Left sided flank pain that he is rating it 8/10 currently. the pain does not radiate anywhere. patient does not have any issues urinating. no burning, no blood in urine. History of Present Illness HPI narrative: Is a 64-year-old gentleman with no past medical history who presents to the emergency department with left flank pain. Patient states that his pain stays on the left side does not radiate into the left leg. Does not have any abdominal pain. Patient does not any chest pain shortness of breath. Patient does not have any urinary symptoms. Patient states that he has been told he has sciatica in the past but does not take many any medications for this. Patient states that his pain worsened while working today. Patient states that his pain improves when he sits down. Denies any fevers vomiting or other associated symptoms. Related Data Previous Rx's ?Medication ?Instructions ?Recorded fexofenadine-pseudoephedrine ER 1 tab PO DAILY PRN allergy 11/06/23 180 mg-240 mg tablet,ext.release symptoms #60 tabs 24 hr (Kay-D 24 Hour) metformin 500 mg tablet See Rx Instructions .Route 03/10/24 .COMPLEX #360 tabs losartan 25 mg tablet 25 mg PO DAILY #90 tabs 09/11/24 doxycycline hyclate 100 mg capsule 100 mg PO BID #20 caps 10/28/24 lidocaine 5 % topical patch 1 patch topical DAILY #15 ea 11/12/24 methocarbamol 500 mg tablet 500 mg PO BID #30 tabs 11/12/24 Allergies Allergy/AdvReac Type Severity Reaction Status Date / Time prednisone (PREDNISONE) Allergy Unknown Verified 09/10/24 08:42 [facility] Disclaimer: The information contained in this section may have been updated after the patient was seen, as this information can be updated by other users. Medical History HTN (hypertension) Lumbosacral spondylosis COPD (chronic obstructive pulmonary disease) HLD (hyperlipidemia) TIA (transient ischemic attack) Polyneuropathy Diabetes Family History Other Unknown family medical history Social History Smoking Status: Current every day smoker tobacco type: cigarettes packs per day: 2 alcohol intake: never substance use type: denies use current occupational status: employed Travel in the last 8 weeks?: None housing: house Have you lived/traveled outside US in past 30 days?: No Contact w/someone who lives/traveled outside US past 30 days?: No Exposure to someone with infectious disease in past 14 days?: No Do you have a fever (greater than 100.4 F or 38 C)?: No Have you tested positive for COVID-19?: No Exposed to someone with COVID-19 in past 14 days?: No Do you have a sore throat?: No Do you have a cough?: No Do you have any weakness?: No Do you have any diarrhea?: No Are you experiencing any unusual bleeding?: No Do you have any muscle aches/pain?: No Do you have any abdominal pain?: No Are you experiencing loss of taste or smell?: No Other Medical History Have you received the Flu Vaccine for this season: No Have you received the Pneumonia Vaccine: No ROS Obtained: Yes All systems reviewed & no additional complaints except as documented and Yes Systems reviewed as appropriate & no additional complaints except as documented Physical Exam General General appearance: alert and in no apparent distress Head Head exam: atraumatic, normocephalic and normal inspection Eye Eye exam: Present normal appearance, PERRL and EOMI; Absent scleral icterus ENT ENT exam: Present normal exam and normal external ear exam Neck Neck exam: Present normal inspection and full ROM Chest Chest inspection: Present normal inspection and symmetric chest wall rise Respiratory Respiratory exam: Present normal lung sounds bilaterally; Absent respiratory distress or wheezes Cardiovascular Cardiovascular exam: Present regular rate, normal rhythm and normal heart sounds Abdominal Exam Abdominal exam: Present soft and distention; Absent tenderness, guarding or rebound Extremities Exam Extremities exam: Present normal inspection and full ROM Back Exam Back exam: Present normal inspection, full ROM and other (L sided paraspinal tenderness, no CVA tenderness) Neurological Exam Neurological exam: Present alert and oriented X3 Psychiatric Psychiatric exam: Present normal affect and normal mood Skin Skin exam: Present warm and dry Medical Decision Making Medical Records Medical records reviewed: Yes I reviewed the patient's medical records. Screening: Per USPSTF and CDC recommendations, given the prevalence of disease in our region, it is our hospital?s policy to screen for HIV and viral Hepatitis for all patients aged 18 and over and those with ongoing risk factors. Khoa Inquiry Pt receiving controlled substance: No Vital Signs: 11/12/24 16:17 11/12/24 17:43 Temperature 97.7 F 98.2 F Temperature Source Oral Pulse Rate 70 Pulse Rate [Left Radial] 66 Respiratory Rate 20 18 Blood Pressure 176/73 H Blood Pressure [Left Arm] 103/73 L Blood Pressure Mean [Left Arm] 83 Blood Pressure Source [Left Arm] Automatic Cuff Blood Pressure Position [Left Arm] Sitting 02 Sat by Pulse Oximetry 97 Oxygen Delivery Method Room Air Lab Data Lab results reviewed: Yes I reviewed the patient's lab results. Lab Results 11/12/24 16:27: Urine Color Yellow, Urine Appearance Clear, Urine pH 6.0, Ur Specific [place] 1.015, Urine Protein Negative, Urine Glucose (UA) Negative, Urine Ketones Negative, Urine Blood Negative, Urine Nitrate Negative, Urine Bilirubin Negative, Urine Urobilinogen 0.2, Ur Leukocyte Esterase Negative, Urine RBC 3-5, Urine WBC 3-5, Ur Squamous Epith Cells Occasional, Urine Bacteria 1+ Orders (Tests/Meds): ED MEDICATIONS Discontinued Medications Generic Name Dose Route Start Last Admin Trade Name Heather PRN Reason Stop Dose Admin Acetaminophen 1,000 mg 11/12/24 16:46 11/12/24 16:57 Acetaminophen 500mg Tab PO 11/12/24 16:47 1,000 mg ONCE ONE Administration Cyclobenzaprine HCl 5 mg 11/12/24 16:46 11/12/24 17:03 Cyclobenzaprine 10mg Tablet PO 11/12/24 16:47 5 mg ONCE ONE Administration Lidocaine 1 each 11/12/24 16:46 11/12/24 17:01 Lidocaine 5% Transdermal Patch TD 11/12/24 16:47 1 each ONCE ONE Administration ORDERS Category Date Time Status Urinalysis and Microscopic Stat Lab 11/12/24 16:27 Completed Medical Decision Narrative: Patient is an otherwise healthy 64-year-old gentleman who presented to the emergency department for left-sided back pain. On arrival, patient was hemodynamically stable with unremarkable vital signs. Differential includes but not limited to: UTI, pyelonephritis, musculoskeletal spasm, sciatica, amongst others. On exam, patient had left-sided paraspinal tenderness, no midline tenderness, patient had no CVA tenderness. Patient had no evidence of sciatica on exam. Patient's exam was consistent with musculoskeletal skeletal spasm and tenderness therefore patient was given symptomatic management in the emergency department. UA was obtained to rule out urinary tract infection or evidence of pyelonephritis. UA showed no evidence of infection. Had symptomatic improvement in the emergency department therefore patient was advised to take Tylenol Motrin patient was sent with Robaxin and lidocaine patch as well. Return precautions were discussed patient was otherwise discharged home in stable condition. Critical Care Critical Care Time Critical Care Time: No
--- OUTSIDE RECORDS SUMMARY | 2024-11-12 16:33 | XMS_ITS | Clinical Summary ---
Author Organization [facility] [place] [address] Care Team Providers Care Food Court Team Member Name Role Phone Unavailable Primary Care Provider [...] 2) 2008 COVID-19 Vaccine (2023-2 5 season) 2024 Influenza Vaccine (#1) 2024 Hepatitis B Vaccine Aged Out No longe r eligible based on patient's age to complete this topic Meningococcal B Vaccine Aged Out No l onger eligible based on patient's age to complete this topic
--- OUTSIDE RECORDS SUMMARY | 2024-11-12 16:33 | XMS_ITS | Clinical Summary ---
Author Organization Healthcare Address [address] [place] [address] Care Team Providers Care Antique Refinisher Name Role Phone Pop Dunham MD Primary Care Provider [phone] Social History Tobacco Use Types Packs/Day Years [...] of Treatment Not on file Care Teams Antique Refinisher Relationship Specialty Start Date End Date Pop Dunham MD [address] [facility] [address] [place] [address] PCP - General 07/16/20
[2024-11-12 16:38] LABS: Microscopic, Urine URINE MICROSCOPIC (MICROSCOPIC)
[2024-11-12 16:40] LABS: Bilirubin,Urine Negative (Negative); Color,Urine YELLOW (Yellow); Glucose,Urine (UA) Negative (Negative); Ketones,Urine Negative (Negative); Leukocyte Esterase,Urine Negative (Negative); PH,Urine 6.0 (5.0-8.5); Protein,Urine Negative (Negative); Specific Gravity, Urine 1.015 (1.005-1.030); Urobilinogen,Urine 0.2 EU/dl (0.2)
[2024-11-12] MEDS: ACETAMINOPHEN 500MG TAB 1000 MG PO (16:57)
[2024-11-12] MEDS: LIDOCAINE 5% TRANSDERMAL PATCH 1 EACH TD (17:01)
[2024-11-12] MEDS: CYCLOBENZAPRINE 10MG TABLET 5 MG PO (17:03)
[2024-11-12 17:13] LABS: Bacteria,Urine 1+ /lpf; Squamous Epithelial Cell,Urine Occasional #/hpf (0-5)
[2024-11-12 17:43] VITALS: BP 176/73; PULSE 70; RESP 18; TEMP 36.8; O2SAT 100
== END 2024-11-12 17:50 | disposition home or self-care (01) ==
PROVIDERS: Emergency Provider Student in an Organized Health Care Education/Training Program; PCP Internal Medicine
DX: M54.6 Pain in thoracic spine (principal); F17.210 Nicotine dependence, cigarettes, uncomplicated
CPT/HCPCS: 81001; 99283